=== PATIENT | male | born 1955 | race Asian ===

== ENCOUNTER 2016-08-05 09:15 | Outpatient (CLI) | payer OTHER | END 2016-08-05 09:30 | disposition home or self-care (01) | DX: R07.9 Chest pain, unspecified (principal) ==

== ENCOUNTER 2016-08-27 08:45 | Outpatient (CLI) | payer OTHER | END 2016-08-27 09:00 | disposition home or self-care (01) | DX: I26.99 Other pulmonary embolism without acute cor pulmonale (principal); R07.9 Chest pain, unspecified ==

== ENCOUNTER 2016-08-27 17:05 | Outpatient (CLI) | payer OTHER | END 2016-08-27 17:06 | disposition home or self-care (01) | DX: I26.99 Other pulmonary embolism without acute cor pulmonale (principal) ==

== ENCOUNTER 2016-08-29 07:50 | Outpatient (CLI) | payer OTHER | END 2016-08-29 07:51 | disposition home or self-care (01) | DX: I26.99 Other pulmonary embolism without acute cor pulmonale (principal) ==

== ENCOUNTER 2016-09-03 20:44 | Outpatient (CLI) | payer OTHER | END 2016-09-03 20:45 | disposition home or self-care (01) | DX: I26.99 Other pulmonary embolism without acute cor pulmonale (principal) ==

== ENCOUNTER 2016-09-10 08:00 | Outpatient (CLI) | payer OTHER | END 2016-09-10 08:01 | disposition home or self-care (01) | DX: I26.99 Other pulmonary embolism without acute cor pulmonale (principal) ==

== ENCOUNTER 2016-09-17 08:11 | Outpatient (CLI) | payer OTHER | END 2016-09-17 08:12 | disposition home or self-care (01) | DX: I26.99 Other pulmonary embolism without acute cor pulmonale (principal) ==

== ENCOUNTER 2016-09-17 08:45 | Outpatient (CLI) | payer OTHER | END 2016-09-17 09:00 | disposition home or self-care (01) | DX: R07.9 Chest pain, unspecified (principal); I26.99 Other pulmonary embolism without acute cor pulmonale ==

== ENCOUNTER 2016-09-24 08:17 | Outpatient (CLI) | payer OTHER | END 2016-09-24 08:18 | DX: I26.99 Other pulmonary embolism without acute cor pulmonale (principal) ==

== ENCOUNTER 2016-09-25 04:40 | Outpatient (CLI) | payer OTHER | END 2016-09-25 04:41 | disposition critical access hospital (66) | DX: R07.9 Chest pain, unspecified (principal) | CPT/HCPCS: A0425; A0427 ==

== ENCOUNTER 2016-09-25 04:59 | Emergency (ER) | payer OTHER | END 2016-09-25 07:26 | disposition home or self-care (01) | DX: R07.9 Chest pain, unspecified (principal); I10 Essential (primary) hypertension; Z86.711 Personal history of pulmonary embolism ==

== ENCOUNTER 2016-09-26 08:00 | Outpatient (CLI) | payer OTHER | END 2016-09-26 08:01 | disposition home or self-care (01) | DX: I26.99 Other pulmonary embolism without acute cor pulmonale (principal) ==

== ENCOUNTER 2016-11-19 08:00 | Outpatient (CLI) | payer OTHER | END 2016-11-19 08:01 | disposition home or self-care (01) | LOC: LAB.N 08:00 | PROVIDERS: ATTEND Nurse Practitioner Gerontology | DX: I26.99 Other pulmonary embolism without acute cor pulmonale (principal) | CPT/HCPCS: 85610 ==

== ENCOUNTER 2016-11-19 08:53 | Outpatient (CLI) | payer MEDICAID, OTHER | END 2016-11-19 23:59 | DX: Z53.9 Procedure and treatment not carried out, unspecified reason (principal) ==

== ENCOUNTER 2016-12-13 08:00 | Outpatient (CLI) | payer SELFPAY | END 2016-12-13 08:01 | disposition home or self-care (01) | LOC: LAB.N 08:00 | PROVIDERS: ATTEND Nurse Practitioner Gerontology | DX: I26.99 Other pulmonary embolism without acute cor pulmonale (principal) | CPT/HCPCS: 85610 ==

== ENCOUNTER 2016-12-20 13:00 | Outpatient (CLI) | payer MEDICAID | END 2016-12-20 23:59 | LOC: LAB.N 13:00 | PROVIDERS: ATTEND Nurse Practitioner Gerontology | DX: I26.99 Other pulmonary embolism without acute cor pulmonale (principal) | CPT/HCPCS: 85610 ==

== ENCOUNTER 2016-12-27 13:35 | Outpatient (CLI) | payer MEDICAID | END 2016-12-27 13:36 | disposition home or self-care (01) | LOC: LAB.N 13:35 | PROVIDERS: ATTEND Nurse Practitioner Gerontology | DX: I26.99 Other pulmonary embolism without acute cor pulmonale (principal) | CPT/HCPCS: 85610 ==

== ENCOUNTER 2016-12-30 08:00 | Outpatient (CLI) | payer MEDICAID | END 2016-12-30 08:01 | disposition home or self-care (01) | DX: I26.99 Other pulmonary embolism without acute cor pulmonale (principal) ==

== ENCOUNTER 2017-01-10 13:23 | Outpatient (CLI) | payer MEDICAID | END 2017-01-10 13:24 | disposition home or self-care (01) | LOC: LAB.N 13:23 | PROVIDERS: ATTEND Nurse Practitioner Gerontology | DX: I26.99 Other pulmonary embolism without acute cor pulmonale (principal) | CPT/HCPCS: 85610 ==

== ENCOUNTER 2017-01-13 13:54 | Outpatient (CLI) | payer MEDICAID | END 2017-01-13 23:59 | disposition home or self-care (01) | LOC: LAB.N 13:54 | PROVIDERS: ATTEND Nurse Practitioner Gerontology | DX: I26.99 Other pulmonary embolism without acute cor pulmonale (principal) | CPT/HCPCS: 85610 ==

== ENCOUNTER 2017-01-20 09:43 | Outpatient (CLI) | payer MEDICAID | END 2017-01-20 09:44 | disposition home or self-care (01) | LOC: LAB.N 09:43 | PROVIDERS: ATTEND Nurse Practitioner Gerontology | DX: I26.99 Other pulmonary embolism without acute cor pulmonale (principal) | CPT/HCPCS: 85610 ==

== ENCOUNTER 2017-01-28 10:29 | Outpatient (CLI) | payer MEDICAID | END 2017-01-28 10:30 | disposition home or self-care (01) | LOC: LAB.N 10:29 | PROVIDERS: ATTEND Internal Medicine Cardiovascular Disease | DX: I26.99 Other pulmonary embolism without acute cor pulmonale (principal) | CPT/HCPCS: 36415; 80048; 80061; 82088; 83835; 84244; 84443; 85610 ==

== ENCOUNTER 2017-02-06 09:32 | Outpatient (CLI) | payer MEDICAID | END 2017-02-06 09:33 | disposition home or self-care (01) | LOC: LAB.N 09:32 | PROVIDERS: ATTEND Nurse Practitioner Gerontology | DX: I26.99 Other pulmonary embolism without acute cor pulmonale (principal) | CPT/HCPCS: 85610 ==

== ENCOUNTER 2017-02-10 08:03 | Outpatient (CLI) | payer MEDICAID | END 2017-02-10 08:04 | disposition home or self-care (01) | LOC: LAB.N 08:03 | PROVIDERS: ATTEND Nurse Practitioner Gerontology | DX: I26.99 Other pulmonary embolism without acute cor pulmonale (principal) | CPT/HCPCS: 85610 ==

== ENCOUNTER 2017-02-17 14:44 | Outpatient (CLI) | payer MEDICAID | END 2017-02-17 14:45 | disposition home or self-care (01) | LOC: LAB.N 14:44 | PROVIDERS: ATTEND Nurse Practitioner Gerontology | DX: I26.99 Other pulmonary embolism without acute cor pulmonale (principal) | CPT/HCPCS: 85610 ==

== ENCOUNTER 2017-03-26 08:44 | Outpatient (CLI) | payer MEDICAID | END 2017-03-26 08:45 | disposition home or self-care (01) | LOC: LAB.N 08:44 | PROVIDERS: ATTEND Nurse Practitioner Gerontology | DX: I26.99 Other pulmonary embolism without acute cor pulmonale (principal) | CPT/HCPCS: 85610 ==

== ENCOUNTER 2017-03-31 08:00 | Outpatient (CLI) | payer MEDICAID | END 2017-03-31 08:01 | disposition home or self-care (01) | LOC: LAB.N 08:00 | PROVIDERS: ATTEND Nurse Practitioner Gerontology | DX: I26.99 Other pulmonary embolism without acute cor pulmonale (principal) | CPT/HCPCS: 85610 ==

== ENCOUNTER 2017-04-07 08:00 | Outpatient (CLI) | payer MEDICAID | END 2017-04-07 08:01 | LOC: LAB.N 08:00 | PROVIDERS: ATTEND Nurse Practitioner Gerontology | DX: I26.99 Other pulmonary embolism without acute cor pulmonale (principal) | CPT/HCPCS: 85610 ==

== ENCOUNTER 2017-05-05 13:05 | Outpatient (CLI) | payer MEDICAID | END 2017-05-05 13:06 | disposition home or self-care (01) | LOC: LAB.N 13:05 | PROVIDERS: ATTEND Nurse Practitioner Gerontology | DX: I26.99 Other pulmonary embolism without acute cor pulmonale (principal) | CPT/HCPCS: 85610 ==

== ENCOUNTER 2017-05-12 13:06 | Outpatient (CLI) | payer MEDICAID | END 2017-05-12 13:07 | disposition home or self-care (01) | LOC: LAB.N 13:06 | PROVIDERS: ATTEND Nurse Practitioner Gerontology | DX: I26.99 Other pulmonary embolism without acute cor pulmonale (principal) | CPT/HCPCS: 85610 ==

== ENCOUNTER 2017-05-16 09:28 | Outpatient (CLI) | payer MEDICAID | END 2017-05-16 09:29 | disposition home or self-care (01) | LOC: LAB.N 09:28 | PROVIDERS: ATTEND Nurse Practitioner Gerontology | DX: I26.99 Other pulmonary embolism without acute cor pulmonale (principal) | CPT/HCPCS: 85610 ==

== ENCOUNTER 2017-05-22 09:10 | Outpatient (CLI) | payer MEDICAID | END 2017-05-22 09:11 | disposition home or self-care (01) | LOC: LAB.N 09:10 | PROVIDERS: ATTEND Nurse Practitioner Gerontology | DX: I26.99 Other pulmonary embolism without acute cor pulmonale (principal) | CPT/HCPCS: 85610 ==

== ENCOUNTER 2017-06-20 08:54 | Outpatient (CLI) | payer MEDICAID | END 2017-06-20 08:55 | disposition home or self-care (01) | LOC: LAB.N 08:54 | PROVIDERS: ATTEND Nurse Practitioner Gerontology | DX: I26.99 Other pulmonary embolism without acute cor pulmonale (principal) | CPT/HCPCS: 85610 ==

== ENCOUNTER 2017-07-17 08:00 | Outpatient (CLI) | payer MEDICAID | END 2017-07-17 08:01 | disposition home or self-care (01) | LOC: LAB.N 08:00 | PROVIDERS: ATTEND Nurse Practitioner Gerontology | DX: I26.99 Other pulmonary embolism without acute cor pulmonale (principal) | CPT/HCPCS: 85610 ==

== ENCOUNTER 2017-08-15 08:00 | Outpatient (CLI) | payer MEDICAID | END 2017-08-15 08:01 | disposition home or self-care (01) | LOC: LAB.N 08:00 | PROVIDERS: ATTEND Nurse Practitioner Gerontology | DX: I26.99 Other pulmonary embolism without acute cor pulmonale (principal) | CPT/HCPCS: 85610 ==

== ENCOUNTER 2017-08-22 08:46 | Outpatient (CLI) | payer MEDICAID | END 2017-08-22 08:47 | disposition home or self-care (01) | LOC: LAB.N 08:46 | PROVIDERS: ATTEND Nurse Practitioner Gerontology | DX: I26.99 Other pulmonary embolism without acute cor pulmonale (principal) | CPT/HCPCS: 85610 ==

== ENCOUNTER 2017-08-29 08:00 | Outpatient (CLI) | payer MEDICAID | END 2017-08-29 08:01 | disposition home or self-care (01) | LOC: LAB.N 08:00 | PROVIDERS: ATTEND Nurse Practitioner Gerontology | DX: I26.99 Other pulmonary embolism without acute cor pulmonale (principal) | CPT/HCPCS: 85610 ==

== ENCOUNTER 2017-09-18 08:00 | Outpatient (CLI) | payer MEDICAID | END 2017-09-18 08:01 | disposition home or self-care (01) | LOC: LAB.N 08:00 | PROVIDERS: ATTEND Nurse Practitioner Gerontology | DX: I26.99 Other pulmonary embolism without acute cor pulmonale (principal) | CPT/HCPCS: 85610 ==

== ENCOUNTER 2017-11-03 08:00 | Outpatient (CLI) | payer MEDICAID | END 2017-11-03 08:01 | disposition home or self-care (01) | LOC: LAB.N 08:00 | PROVIDERS: ATTEND Nurse Practitioner Gerontology | DX: I26.99 Other pulmonary embolism without acute cor pulmonale (principal) | CPT/HCPCS: 85610 ==

== ENCOUNTER 2017-12-09 08:00 | Outpatient (CLI) | payer MEDICAID | END 2017-12-09 08:01 | disposition home or self-care (01) | LOC: LAB.N 08:00 | PROVIDERS: ATTEND Nurse Practitioner Gerontology | DX: I26.99 Other pulmonary embolism without acute cor pulmonale (principal) | CPT/HCPCS: 85610 ==

== ENCOUNTER 2017-12-23 08:00 | Outpatient (CLI) | payer MEDICAID | END 2017-12-23 08:01 | disposition home or self-care (01) | LOC: LAB.N 08:00 | PROVIDERS: ATTEND Nurse Practitioner Gerontology | DX: I26.99 Other pulmonary embolism without acute cor pulmonale (principal) | CPT/HCPCS: 85610 ==

== ENCOUNTER 2018-01-07 08:00 | Outpatient (CLI) | payer MEDICAID | END 2018-01-07 08:01 | disposition home or self-care (01) | LOC: LAB.N 08:00 | PROVIDERS: ATTEND Nurse Practitioner Gerontology | DX: I26.99 Other pulmonary embolism without acute cor pulmonale (principal) | CPT/HCPCS: 85610 ==

== ENCOUNTER 2018-01-22 08:36 | Outpatient (CLI) | payer MEDICAID | END 2018-01-22 08:37 | disposition home or self-care (01) | LOC: LAB.N 08:36 | PROVIDERS: ATTEND Nurse Practitioner Gerontology | DX: I26.99 Other pulmonary embolism without acute cor pulmonale (principal) | CPT/HCPCS: 85610 ==

== ENCOUNTER 2018-01-26 08:00 | Outpatient (CLI) | payer MEDICAID | END 2018-01-26 08:01 | disposition home or self-care (01) | LOC: LAB.N 08:00 | PROVIDERS: ATTEND Nurse Practitioner Gerontology | DX: I26.99 Other pulmonary embolism without acute cor pulmonale (principal) | CPT/HCPCS: 85610 ==

== ENCOUNTER 2018-02-09 08:40 | Outpatient (CLI) | payer MEDICAID | END 2018-02-09 08:41 | disposition home or self-care (01) | LOC: LAB.N 08:40 | PROVIDERS: ATTEND Nurse Practitioner Gerontology | DX: I26.99 Other pulmonary embolism without acute cor pulmonale (principal) | CPT/HCPCS: 85610 ==

== ENCOUNTER 2018-02-16 08:39 | Outpatient (CLI) | payer MEDICAID | END 2018-02-16 08:40 | disposition home or self-care (01) | LOC: LAB.N 08:39 | PROVIDERS: ATTEND Nurse Practitioner Gerontology | DX: I26.99 Other pulmonary embolism without acute cor pulmonale (principal) | CPT/HCPCS: 85610 ==

== ENCOUNTER 2018-02-17 08:36 | Outpatient (CLI) | payer MEDICAID | END 2018-02-17 08:37 | disposition home or self-care (01) | LOC: LAB.N 08:36 | PROVIDERS: ATTEND Nurse Practitioner Gerontology | DX: I26.99 Other pulmonary embolism without acute cor pulmonale (principal) | CPT/HCPCS: 85610 ==

== ENCOUNTER 2018-03-09 09:24 | Outpatient (CLI) | payer MEDICAID | END 2018-03-09 09:25 | disposition home or self-care (01) | LOC: LAB.N 09:24 | PROVIDERS: ATTEND Nurse Practitioner Gerontology | DX: I26.99 Other pulmonary embolism without acute cor pulmonale (principal) | CPT/HCPCS: 85610 ==

== ENCOUNTER 2018-04-09 09:56 | Outpatient (CLI) | payer MEDICAID | END 2018-04-09 09:57 | disposition home or self-care (01) | LOC: LAB.N 09:56 | PROVIDERS: ATTEND Nurse Practitioner Gerontology | DX: I26.99 Other pulmonary embolism without acute cor pulmonale (principal) | CPT/HCPCS: 85610 ==

== ENCOUNTER 2018-04-20 08:50 | Outpatient (CLI) | payer MEDICAID | END 2018-04-20 08:51 | disposition home or self-care (01) | LOC: LAB.N 08:50 | PROVIDERS: ATTEND Nurse Practitioner Gerontology | DX: I26.99 Other pulmonary embolism without acute cor pulmonale (principal) | CPT/HCPCS: 85610 ==

== ENCOUNTER 2018-04-27 08:00 | Outpatient (CLI) | payer MEDICAID | END 2018-04-27 08:01 | disposition home or self-care (01) | LOC: LAB.N 08:00 | PROVIDERS: ATTEND Nurse Practitioner Gerontology | DX: I26.99 Other pulmonary embolism without acute cor pulmonale (principal) | CPT/HCPCS: 85610 ==

== ENCOUNTER 2018-05-25 07:53 | Outpatient (CLI) | payer MEDICAID | END 2018-05-25 07:54 | disposition home or self-care (01) | LOC: LAB.N 07:53 | PROVIDERS: ATTEND Nurse Practitioner Gerontology | DX: I26.99 Other pulmonary embolism without acute cor pulmonale (principal) | CPT/HCPCS: 85610 ==

== ENCOUNTER 2020-10-14 09:37 | Observation (INO) | payer MEDICARE ==
--- NOTE | 2020-10-14 10:13 | XRAY Report ---
PROCEDURE: Chest 1 View X-Ray INDICATIONS: chest pain TECHNIQUE: One view of the chest was acquired. COMPARISON: 09/25/2016 FINDINGS: Surgical changes and devices: None. Lungs and pleura: No pleural effusions or pneumothorax. Lungs are clear. Mediastinum: Mediastinal contours appear normal. Heart size is normal. Bones and chest wall: No suspicious bony lesions. Age-appropriate degenerative changes are seen. O verlying soft tissues appear unremarkable. IMPRESSION: Portable chest within normal limits for age. Reviewed by: Chetan Whelan MD on 10/14/2020 9:12 AM PATRICIO Approved by: Chetan Whelan MD on 10/14/2020 9:12 AM PATRICIO Station ID: [id number]
[2020-10-14 10:18] LABS: BASOPHILS # (AUTO) 0.1 10^3/uL (0.0-0.1); BASOPHILS % (AUTO) 0.8 %; EOSINOPHILS # (AUTO) 0.2 10^3/uL (0.0-0.7); EOSINOPHILS % (AUTO) 2.1 %; HCT - HEMATOCRIT 40.2 % (42.0-52.0); HGB - HEMOGLOBIN 12.7 g/dL (14.0-18.0); LYMPHOCYTES # (AUTO) 4.3 10^3/uL (1.5-3.5); LYMPHOCYTES % (AUTO) 48.6 %; MEAN CORPUSCULAR HEMOGLOBIN 28.8 pg (27.0-31.0); MEAN CORPUSCULAR HGB CONC 31.6 g/dL (32.0-36.0); MEAN CORPUSCULAR VOLUME 91.2 fL (80.0-94.0); MEAN PLATELET VOLUME 10.1 fL (7.4-11.4); MONOCYTES # (AUTO) 0.6 10^3/uL (0.0-1.0); MONOCYTES % (AUTO) 6.4 %; NEUTROPHILS # (AUTO) 3.7 10^3/uL (1.5-6.6); NEUTROPHILS % (AUTO) 41.6 %; PLT - PLATELET COUNT 237 10^3/uL (130-450); RED BLOOD COUNT 4.41 10^6/uL (4.70-6.10); RED CELL DISTRIBUTION WIDTH 13.5 % (12.0-15.0); WHITE BLOOD COUNT 8.9 x10^3/uL (4.8-10.8)
--- OUTSIDE RECORDS SUMMARY | 2020-10-14 10:26 | EXTERNAL MEDICAL SUMMARY RPT | Continuity of Care Document ---
:1955 Demographics Phone Unavailable Preferred Language Unknown Marital Status Unknown Yarsani Affiliation Unknown Race Unknown Ethnic Group Unknown Author Organization [facility] Address [address] [place] [address] Phone Social History date description facility [phone]
[2020-10-14 10:27] LABS: INR 3.3 (0.8-1.2); PT - PROTHROMBIN TIME 34.5 secs (9.9-12.6)
[2020-10-14 10:34] LABS: PARTIAL THROMBOPLASTIN TIME 41.7 secs (24.9-33.3)
[2020-10-14 10:35] LABS: ALBUMIN 3.9 g/dL (3.2-5.5); ALBUMIN/GLOBULIN RATIO 1.1 (1.0-2.2); BILIRUBIN,TOTAL 0.9 mg/dL (0.2-1.0); CALCIUM 9.6 mg/dL (8.5-10.3); CREATININE 1.1 mg/dL (0.6-1.2); TOTAL PROTEIN 7.4 g/dL (6.7-8.2)
[2020-10-14] MEDS ORDERED: SODIUM CHLORIDE 0.9% 1,000 ML IV STA (12:03)
--- NOTE | 2020-10-14 12:45 | ED Physician Documentation ---
History of Present Illness - Stated complaint Stated Complaint: MALE - Chief complaint Chief Complaint: Abd Pain - History obtained from History obtained from: Patient - Additonal information Additional information: 65-year-old man with past medical history of GI bleed with multiple blood transfusions in past, extremely poor historian, PE on warfarin for the past 6 years, last INR 2.8 yesterday p/w For episodes of hematochezia yesterday and today. Patient also with back pain and cramping abdominal pain as well as intermittent chest pain, although it has not occurred today. Patient denies fe vers, nausea or vomiting. He states that his last colonoscopy was over 10 years ago.Primary doctor is Dr. Pat. Possibly was hospitalized at [facility] or [facility] for GIB 2-4 years ago but he can't remember. Review of Systems Ten Systems: 10 systems reviewed and negative Constitutional: denies: Fever, Chills GI: reports: Abdominal Pain, Bloody / black stool. denies: Nausea, Vomiting : denies: Dysuria PD PAST MEDICAL HISTORY - Past Medical History Past Medical History: Yes Cardiovascular: Hypertension, Pulmonary embolism GI: Diverticulitis - Past Surgical History Past Surgical History: Yes - Present Medications Home Medications: Ambulatory Orders Medication Instructions Recorded Confirmed Losartan Potassium 50 mg PO DAILY 09/25/16 10/14/20 Warfarin Sodium 5 mg PO DAILY 09/25/16 10/14/20 - Allergies Allergies/Adverse Reactions: Allergies Allergy/AdvReac Type Severity Reaction Status Date / Time No Known Drug Allergies Allergy Verified 10/14/20 09:48 - Social History Does the pt smoke?: No Smoking Status: Never smoker Does the pt drink ETOH?: No Does the pt have substance abuse?: No - Immunizations Immunizations are current?: No - POLST Patient has POLST: No PD ED PE NORMAL - Vitals Vital signs reviewed: Yes - General General: Alert and oriented X 3, No acute distress, Well developed/nourished - HEENT HEENT: Atraumatic, PERRL, EOMI - Neck Neck: Supple, no meningeal sign - Cardiac Cardiac: Other (tachycardic rate, regular rhythm) - Respiratory Respiratory: No respiratory distress, Clear bilaterally - Abdomen Abdomen: Non tender, Non distended - Rectal Rectal: Other (+external nonthrombosed hemorrhoids. BRB on ZEYAD. ) - Derm Derm: Normal color - Extremities Extremities: No deformity - Neuro Neuro: Alert and oriented X 3 - Psych Psych: Normal mood, Normal affect Results - Vitals Vitals: Vital Signs - 24 hr 10/14/20 10/14/20 10/14/20 09:43 10:00 12:00 Temperature 36.4 C L Heart Rate 109 H 98 84 Heart Rate [ Sitting] Heart Rate [ Standing] Heart Rate [ Supine] Respiratory 16 16 16 Rate Blood Pressure 143/98 H 129/52 L 150/97 H Blood Pressure [Sitting] Blood Pressure [Standing] Blood Pressure [Supine] O2 Saturation 100 98 97 10/14/20 12:10 Temperature Heart Rate Heart Rate [ 98 Sitting] Heart Rate [ 93 Standing] Heart Rate [ 83 Supine] Respiratory Rate Blood Pressure Blood Pressure 141/101 H [Sitting] Blood Pressure 153/106 H [Standing] Blood Pressure 123/82 H [Supine] O2 Saturation Oxygen O2 Source Room air - Labs Labs: Laboratory Tests 10/14/20 10/14/20 10/14/20 10:08 10:08 10:08 WBC 8.9 RBC 4.41 L Hgb 12.7 L Hct 40.2 L MCV 91.2 MCH 28.8 MCHC 31.6 L RDW 13.5 Plt Count 237 MPV 10.1 Neut # (Auto) 3.7 Lymph # (Auto) 4.3 H [place] # (Auto) 0.6 Eos # (Auto) 0.2 Baso # (Auto) 0.1 Absolute Nucleated RBC 0.00 Nucleated RBC % 0.0 PT 34.5 H INR 3.3 H APTT 41.7 H Sodium 141 Potassium 4.0 Chloride 105 Carbon Dioxide 28 Anion Gap 8.0 BUN 16 Creatinine 1.1 Estimated GFR (MDRD) 67 L Glucose 141 H Calcium 9.6 Total Bilirubin 0.9 AST 22 ALT 24 Alkaline Phosphatase 82 Troponin I High Sens Total Protein 7.4 Albumin 3.9 Globulin 3.5 Albumin/Globulin Ratio 1.1 Lipase 31 10/14/20 10:08 WBC RBC Hgb Hct MCV MCH MCHC RDW Plt Count MPV Neut # (Auto) Lymph # (Auto) [place] # (Auto) Eos # (Auto) Baso # (Auto) Absolute Nucleated RBC Nucleated RBC % PT INR APTT Sodium Potassium Chloride Carbon Dioxide Anion Gap BUN Creatinine Estimated GFR (MDRD) Glucose Calcium Total Bilirubin AST ALT Alkaline Phosphatase Troponin I High Sens 4.0 Total Protein Albumin Globulin Albumin/Globulin Ratio Lipase PD MEDICAL DECISION MAKING - ED course ED course: Patient orthostatic on evaluation after initial symptomatic care. He is an extremely poor historian and I am concerned that he will not follow-up as an outpatient. Because of this I called Dr. Hayes for possible inpatient colonoscopy. I will discuss with Dr. Sy for admission. Departure - Departure Disposition: 66 [facility] DC/Xfer Clinical Impression: Orthostatic hypotension, Rectal bleeding, Hemorrhoids Condition: Stable
[2020-10-14] MEDS ORDERED: SODIUM CHLORIDE FLUSH 0.9% 10 ML SYRINGE IVP PRN (14:00)
[2020-10-14] MEDS ORDERED: CHERRY SYRUP 10 ML UDC PO ONE (14:03)
[2020-10-14] MEDS ORDERED: PHYTONADIONE 10 MG/ML AMP PO ONE (14:03)
--- OUTSIDE RECORDS SUMMARY | 2020-10-14 14:34 | EXTERNAL MEDICAL SUMMARY RPT | Continuity of Care Document ---
:1955 Demographics Phone Unavailable Preferred Language Unknown Marital Status Unknown Jain Affiliation Unknown Race Unknown Ethnic Group Unknown Author Organization [facility] Address [address] [place] [address] Phone Social History date description facility [phone]
[2020-10-14 14:52] LABS: BILIRUBIN,URINE NEGATIVE (NEGATIVE); GLUCOSE, URINE (UA) NEGATIVE (NEGATIVE); KETONES,URINE (UA) NEGATIVE (NEGATIVE); LEUKOCYTE ESTERASE, URINE NEGATIVE (NEGATIVE); NITRITE,URINE NEGATIVE (NEGATIVE); OCCULT BLOOD,URINE NEGATIVE (NEGATIVE); PROTEIN,URINE NEGATIVE (NEGATIVE); UROBILINOGEN,URINE 0.2 (NORMAL) E.U./dL (NORMAL)
[2020-10-14 14:55] LABS: B. PARAPERTUSSIS- RESP PCR PAN NOT DETECTED; B. PERTUSSIS- RESP PCR PANEL NOT DETECTED; C. PNEUMONIAE- RESP PCR PANEL NOT DETECTED; CORONAVIRUS 229E-RESP PCR NOT DETECTED; CORONAVIRUS HKU1-RESP PCR NOT DETECTED; CORONAVIRUS NL63-RESP PCR NOT DETECTED; CORONAVIRUS OC43-RESP PCR NOT DETECTED; HUMAN METAPNEUMOVIRUS NOT DETECTED; INFLUENZA A- RESP PCR PANEL NOT DETECTED; INFLUENZA B - RESP PCR PANEL NOT DETECTED; M. PNEUMONIAE- RESP PCR PANEL NOT DETECTED; PARAINFLUENZA VIRUS 1 NOT DETECTED; PARAINFLUENZA VIRUS 2 NOT DETECTED; PARAINFLUENZA VIRUS 3 NOT DETECTED; PARAINFLUENZA VIRUS 4 NOT DETECTED; RHINOVIRUS/ENTEROVIRUS NOT DETECTED; RSV- RESP PCR PANEL NOT DETECTED; SARS-CoV-2 -RESP PCR PANEL NOT DETECTED
[2020-10-14 14:56] LABS: CLARITY,URINE CLEAR (CLEAR)
[2020-10-14] MEDS: SODIUM CHLORIDE 0.9% 1,000 ML IV SCH (15:00)
--- NOTE | 2020-10-14 15:09 | HISTORY & PHYSICAL EXAMINATION ---
History of Present Illness - Admitted From Admitted From:: ER - History of Present Illness HPI Comment/Other: This is a 65-year-old male of Citizen Of [place] origin who has a history of prior GI bleeding but has been on warfarin for pulmonary embolism several years ago. Yesterday he had abdominal pain and 2 bright red bowel movements and today again two, and therefore presented to the ER. He was found to have an INR of 2.8 yesterday that is 3.3 today, hemoglobin 12.7 today and he was tachycardic at rest with a heart rate of 110 and had an orthostatic drop in blood pressure when tested. He received 1 L of fluid in the ER. He is presented to the Hospitalist service to place in Observation status to work-up abdominal pain and lower GI bleeding. No CT imaging was done while in the ER, because th CT scanner was broken at the time. History - Past Medical History Cardiovascular: reports: Hypertension, Pulmonary embolism GI: reports: Hemorrhoids, Diverticulitis, Other (Had a GI bleed in the past, cannot remember what was the cause) MRSA Hx?: No - Past Surgical History General: reports: Colonoscopy (done over 10 years ago) - Family & Social History Living arrangement: At home Living Situation: With spouse/s.o., With family (15 year old daughter) Social History Notes: He is retired from working at the [employer] - Substance History Use: Uses substance without health or social issues: NONE (No cigarette smoking, no alcohol use, no marijuana use) - POLST Patient has POLST: No Meds/Allgy - Home Medications Home Medications: Ambulatory Orders Medication Instructions Recorded Confirmed Losartan Potassium 50 mg PO DAILY 09/25/16 10/14/20 Warfarin Sodium 5 mg PO DAILY 09/25/16 10/14/20 - Allergies Allergies/Adverse Reactions: Allergies Allergy/AdvReac Type Severity Reaction Status Date / Time No Known Drug Allergies Allergy Verified 10/14/20 09:48 Review of Systems - Gastrointestinal Gastrointestinal: reports: Abdominal pain, Abdominal distention, Diarrhea, Bloody stools - All Other Systems All Other Systems: reports: Reviewed and negative Exam - Vital Signs Vital Signs: Vital Signs x48h Temp Pulse Pulse Pulse Pulse Resp BP 10/14/20 14:21 77 16 110/45 L 10/14/20 12:10 98 93 83 10/14/20 12:00 84 16 150/97 H 10/14/20 10:00 98 16 129/52 L 10/14/20 09:43 36.4 C L 109 H 16 143/98 H BP BP BP Pulse Ox 10/14/20 14:21 100 10/14/20 12:10 141/101 H 153/106 H 123/82 H 10/14/20 12:00 97 10/14/20 10:00 98 10/14/20 09:43 100 - Physical Exam General Appearance: positive: No acute distress, Alert Eyes Bilateral: positive: Normal inspection, EOMI ENT: positive: ENT inspection nml, No signs of dehydration Neck: positive: Nml inspection, No JVD Respiratory: positive: No respiratory distress, Breath sounds nml Cardiovascular: positive: Regular rate & rhythm, No murmur Abdomen: positive: Non-tender, Other (Mildly distended, hyperactive bowel sounds) Skin: positive: Color nml, Warm, Dry Extremities: positive: Non-tender, No pedal edema Neurologic/Psychiatric: positive: Oriented x3, Motor nml Conclusion/Plan - Problem List (1) Lower GI bleeding Conclusion/Plan: The source is unknown and it may have been exacerbated by the excessively elevated INR. Source is unknown, there was no imaging available today, the CT scanner is not working. Will hold the warfarin and give a dose of vitamin K to reverse the high INR. We will request general surgery consult for colonoscopy. Follow H/H q12h. (2) Abdominal pain Conclusion/Plan: We have no CT scanner available today to do complete imaging of the abdomen and pelvis. Will obtain a CT scan when available. Will put the patient on a clear liquid diet. This will also be in preparation for colonoscopy. We will request general surgery consult. (3) Orthostatic hypotension Conclusion/Plan: A significant drop in blood pressure suggesting that he has volume depletion, possibly from a significant GI blood loss. We will order his blood pressure meds but give parameters for holding it. Continue with IV maintenance fluid. We will follow his CBC regarding need for possible blood transfusion. (4) Elevated INR Conclusion/Plan: INR is 3.3 which is excessive and in light of bright red blood per rectum, will give an oral dose of vitamin K x1. Recheck INR later today and follow INR daily. Colonoscopy is planned therefore the provider will likely want an INR under 1.5- 1.8 (5) Anemia Conclusion/Plan: Hemoglobin at presentation is 12.7. We will follow CBC every 12 hours. Will stop the warfarin as we are working up the lower GI bleeding (6) HTN (hypertension) Conclusion/Plan: His home blood pressure medication will be continued with hold parameters in case blood pressure drops, from the GI blood loss anemia. (7) Hx pulmonary embolism Conclusion/Plan: He has been on this for at least 5 to 6 years. The details are not known. Warfarin will be stopped because of the current GI bleeding. (8) Abnormal EKG Conclusion/Plan: His resting EKG shows early R/S transition which is consistent with cor pulmonale. Possibly he has right ventricular strain or enlargement from the prior pulmonary embolism. - Lab Results Fish Bones: 10/14/20 10:08 10/14/20 10:08
[2020-10-14] MEDS: SODIUM CHLORIDE FLUSH 0.9% 10 ML SYRINGE IVP SCH (16:03)
[2020-10-14] MEDS ORDERED: IOPAMIDOL-300 100 ML VIAL ONE (17:03)
[2020-10-14] MEDS ORDERED: IOPAMIDOL-300 100 ML VIAL IVP ONE (18:27)
[2020-10-14] MEDS: SODIUM/POTASSIUM/MAG SULFATES 354 ML PREP KIT PO SCH (18:37)
--- NOTE | 2020-10-14 18:42 | CT Report ---
PROCEDURE: Abdomen/Pelvis W INDICATIONS: abd pain, diarrhea and lower GI bleeding CONTRAST: IV CONTRAST: Isovue 300 ml: 100 PO CONTRAST: *NO PO CONTRAST TECHNIQUE: After the administration of oral and intravenous contrast, 5 mm thick sections acquired from the diap hragms to the symphysis. 5 mm thick coronal and sagittal reformats were acquired. For radiation dos e reduction, the following was used: automated exposure control, adjustment of mA and/or kV accordin g to patient size. COMPARISON: 12/01/2014. FINDINGS: Image quality: Excellent. ABDOMEN: Lung bases: Lung bases are clear. There is a 1.5 cm pulmonary nodule in the extreme right lung base, not previously present. Heart size is normal. Solid organs: Liver and spleen are normal in size and enhancement. Gallbladder contains dependent c alcified stones. No gallbladder wall thickening. Biliary system is non dilated. Pancreas enhances n ormally. No adrenal nodules. Kidneys demonstrate normal size and enhancement, without hydronephrosi s. 4 mm nonobstructing left middle pole renal stone. Peritoneum and bowel: Bowel loops demonstrate normal wall thickness and caliber. There is a normal a ppendix containing contrast. No free fluid or air. Nodes and vessels: No retroperitoneal or mesenteric adenopathy by size criteria. Aorta and inferior vena cava are normal in size. Miscellaneous: No ventral hernias. PELVIS: Genitourinary: Bladder is decompressed. Question mild bladder wall thickening. Miscellaneous: Fat-containing right inguinal hernia. No inguinal adenopathy. Bones: No suspicious bony lesions. No vertebral body compression fractures. IMPRESSION: 1. Interval development of a 1.5 cm pulmonary nodule in the extreme right lung base, suspicious for d evelopment of metastatic disease. 2. Cholelithiasis. 3. Nonobstructing left renal stone. 4. No evidence of acute abdominal process. Comment: Recommend chest CT. Consider PET/CT. Reviewed by: Mike Rosa MD on 10/14/2020 6:40 PM PDT Approved by: Mike Rosa MD on 10/14/2020 6:40 PM PDT Station ID: [id number]
[2020-10-14 19:18] LABS: HCT - HEMATOCRIT 39.7 % (42.0-52.0); HGB - HEMOGLOBIN 12.5 g/dL (14.0-18.0)
[2020-10-14 19:23] LABS: INR 2.1 (0.8-1.2); PT - PROTHROMBIN TIME 22.1 secs (9.9-12.6)
[2020-10-15] MEDS ORDERED: ACETAMINOPHEN 325 MG TABLET PO PRN (00:27)
[2020-10-15] MEDS ORDERED: MORPHINE 2 MG/ML CARPUJECT IVP PRN (00:27)
[2020-10-15] MEDS: SODIUM CHLORIDE FLUSH 0.9% 10 ML SYRINGE IVP SCH ×2 (02:08→08:23)
[2020-10-15] MEDS: SODIUM CHLORIDE 0.9% 1,000 ML IV SCH ×2 (02:09→11:11)
[2020-10-15] MEDS: SODIUM/POTASSIUM/MAG SULFATES 354 ML PREP KIT PO SCH (05:29)
[2020-10-15 05:33] LABS: BASOPHILS # (AUTO) 0.1 10^3/uL (0.0-0.1); BASOPHILS % (AUTO) 0.7 %; EOSINOPHILS # (AUTO) 0.4 10^3/uL (0.0-0.7); EOSINOPHILS % (AUTO) 3.9 %; HCT - HEMATOCRIT 34.6 % (42.0-52.0); HGB - HEMOGLOBIN 10.9 g/dL (14.0-18.0); LYMPHOCYTES # (AUTO) 3.7 10^3/uL (1.5-3.5); LYMPHOCYTES % (AUTO) 40.1 %; MEAN CORPUSCULAR HEMOGLOBIN 28.8 pg (27.0-31.0); MEAN CORPUSCULAR HGB CONC 31.5 g/dL (32.0-36.0); MEAN CORPUSCULAR VOLUME 91.3 fL (80.0-94.0); MEAN PLATELET VOLUME 10.2 fL (7.4-11.4); MONOCYTES # (AUTO) 0.6 10^3/uL (0.0-1.0); MONOCYTES % (AUTO) 6.8 %; NEUTROPHILS # (AUTO) 4.4 10^3/uL (1.5-6.6); NEUTROPHILS % (AUTO) 48.1 %; PLT - PLATELET COUNT 209 10^3/uL (130-450); RED BLOOD COUNT 3.79 10^6/uL (4.70-6.10); RED CELL DISTRIBUTION WIDTH 13.6 % (12.0-15.0); WHITE BLOOD COUNT 9.2 x10^3/uL (4.8-10.8)
[2020-10-15] MEDS ORDERED: PROPOFOL 1000 MG/100 ML 1,000 MG/100 ML BOTTLE IV ONE (07:37)
--- NOTE | 2020-10-15 07:50 | ANESTHESIA ---
Pre-Anesthesia VS, & Labs - Diagnosis GI Bleed - Procedure EGD, Colonoscopy Vital Signs: Temp Pulse Resp BP Pulse Ox 37 C 90 16 153/93 H 98 10/15/20 05:00 10/15/20 05:00 10/15/20 05:00 10/15/20 05:00 10/15/20 05:00 Height: 5 ft 5 in Weight (kg): 74 kg Body Mass Index: 27.1 BMI Classification: Overweight - NPO >8 hours - Lab Results Current Lab Results: Laboratory Tests 10/15/20 05:20: WBC 9.2, RBC 3.79 L, Hgb 10.9 L, Hct 34.6 L, MCV 91.3, MCH 28.8, MCHC 31.5 L, RDW 13.6, Plt Count 209, MPV 10.2, Neut # (Auto) 4.4, Lymph # (Auto) 3.7 H, [place] # (Auto) 0.6, Eos # (Auto) 0.4, Baso # (Auto) 0.1, Absolute Nucleated RBC 0.00, Nucleated RBC % 0.0 10/14/20 19:12: PT 22.1 H, INR 2.1 H 10/14/20 19:12: Hgb 12.5 L, Hct 39.7 L 10/14/20 10:08: Troponin I High Sens 4.0 10/14/20 10:08: PT 34.5 H, INR 3.3 H, APTT 41.7 H 10/14/20 10:08: Sodium 141, Potassium 4.0, Chloride 105, Carbon Dioxide 28, Anion Gap 8.0, BUN 16, Creatinine 1.1, Estimated GFR (MDRD) 67 L, Glucose 141 H, Calcium 9.6, Total Bilirubin 0.9, AST 22, ALT 24, Alkaline Phosphatase 82, Total Protein 7.4, Albumin 3.9, Globulin 3.5, Albumin/Globulin Ratio 1.1, Lipase 31 10/14/20 10:08: WBC 8.9, RBC 4.41 L, Hgb 12.7 L, Hct 40.2 L, MCV 91.2, MCH 28.8, MCHC 31.6 L, RDW 13.5, Plt Count 237, MPV 10.1, Neut # (Auto) 3.7, Lymph # (Auto) 4.3 H, [place] # (Auto) 0.6, Eos # (Auto) 0.2, Baso # (Auto) 0.1, Absolute Nucleated RBC 0.00, Nucleated RBC % 0.0 Lab results reviewed: Yes Fish Bones: 10/15/20 05:20 10/14/20 10:08 Home Medications and Allergies Active Medications Acetaminophen (Acetaminophen 325 Mg Tablet) 650 mg PO Q4HR PRN PRN Reason: Pain or Fever > 38C (100.4F) Last Admin: 10/15/20 00:35 Dose: 650 mg Documented by: Sodium Chloride (Normal Saline 0.9%) 1,000 mls @ 83.33 mls/hr IV .Q12H1M DELTA Last Infusion: 10/15/20 07:00 Dose: 83.33 mls/hr Documented by: Losartan Potassium (Losartan 50 Mg Tablet) 50 mg PO DAILY DELTA Morphine Sulfate (Morphine 2 Mg/Ml Carpuject) 2 mg IVP Q2HR PRN PRN Reason: PAIN Sodium Chloride (Sodium Chloride Flush 0.9% 10 Ml Syringe) 10 ml IVP PRN PRN PRN Reason: NEEDED PER PROVIDER ORDERS Sodium Chloride (Sodium Chloride Flush 0.9% 10 Ml Syringe) 10 ml IVP 0100,0900,1700 DELTA Last Admin: 10/15/20 02:08 Dose: Not Given Documented by: Losartan Potassium 50 mg PO DAILY 09/25/16 Warfarin Sodium 5 mg PO DAILY 09/25/16 Allergies/Adverse Reactions: Allergies Allergy/AdvReac Type Severity Reaction Status Date / Time No Known Drug Allergies Allergy Verified 10/14/20 09:48 Anes History & Medical History - Anesthetic History Anesthesia Complications: reports: No previous complications Family history of Anesthesia Complications: Denies Family history of Malignant Hyperthermia: Denies - Medical History Cardiovascular: reports: Hypertension, Pulmonary embolism Gastrointestinal: reports: Hemorrhoids, Diverticulitis, Other (Had a GI bleed in the past, cannot remember what was the cause) Smoking Status: Never smoker - Surgical History General: reports: Colonoscopy (done over 10 years ago) Exam General: Alert, Oriented x3, Cooperative, No acute distress Dental: WNL Mouth Openin Fingerbreadth Neck Mobility: Normal Mallampati classification: II Respiratory: Lungs clear, Normal breath sounds, No respiratory distress, No accessory muscle use Cardiovascular: Regular rate, Normal S1, Normal S2, No murmurs Plan Anesthesia Type: General, Total IV Consent for Procedure(s) Verified and Reviewed: Yes Code Status: Attempt Resuscitation ASA classification: 2-Mild systemic disease Is this case an emergency?: No
--- NOTE | 2020-10-15 08:12 | HISTORY & PHYSICAL EXAMINATION ---
HPI - Admitted From Admitted from: ED - History Obtained From History obtained from: Patient Exam limitations: Language barrier - History of Present Illness HPI Comment/Other: 65-year-old gentleman who presented to the emergency room with several days of weakness. He has a history of pulmonary embolus and has been on warfarin for several years. With an corporate communications manager, he did report some abdominal pain though not severe. He was noted to be orthostatic in the emergency room and so was admitted for hydration and supportive care as well as observation. He reports a colonoscopy approximately 10 years ago that was normal. He has not ever had an EGD.He has no family history of GI or colon malignancy that he is aware of. PMH/PSH - Past Medical History Cardiovascular: positive: Hypertension, Pulmonary embolism GI: positive: Hemorrhoids, Diverticulitis, Other (Had a GI bleed in the past, cannot remember what was the cause) MRSA Hx?: No - Past Surgical History General: positive: Colonoscopy (done over 10 years ago) Social & Family Hx - Social History Does the pt smoke?: No Smoking Status: Never smoker Does the pt drink ETOH?: No Does the pt have substance abuse?: No - POLST Patient has POLST: No Meds/Allgy - Home Medications Home Medications: Ambulatory Orders Medication Instructions Recorded Confirmed Losartan Potassium 50 mg PO DAILY 09/25/16 10/14/20 Warfarin Sodium 5 mg PO DAILY 09/25/16 10/14/20 - Allergies Allergies/Adverse Reactions: Allergies Allergy/AdvReac Type Severity Reaction Status Date / Time No Known Drug Allergies Allergy Verified 10/14/20 09:48 Review of Systems - Constitutional Constitutional: reports: Fatigue, Weakness - Cardiovascular Cariovascular: reports: Lightheadedness - Gastrointestinal Gastrointestinal: reports: Abdominal pain, Black stools. denies: Nausea - All Other Systems All Other Systems: reports: Reviewed and negative Exam - Vital Signs Reviewed Vital Signs: Yes Vital Signs: Vital Signs x48h Temp Pulse Resp BP Pulse Ox 10/15/20 07:46 36.5 C 86 18 157/93 H 99 10/15/20 05:00 37 C 90 16 153/93 H 98 10/15/20 00:37 37 C 88 17 155/97 H 96 - Physical Exam General Appearance: positive: No acute distress, Alert, Mild distress Eyes Bilateral: positive: Normal inspection, PERRL, EOMI ENT: positive: ENT inspection nml, Pharynx nml, No signs of dehydration Neck: positive: Nml inspection, Thyroid nml, No JVD Respiratory: positive: Chest non-tender, No respiratory distress, Breath sounds nml Cardiovascular: positive: Regular rate & rhythm Peripheral Pulses: positive: 0 Abdomen: positive: Tenderness (Midepigastric). negative: Guarding, Rebound Back: negative: CVA tenderness (R), CVA tenderness (L) Skin: positive: Color nml Neurologic/Psychiatric: positive: Oriented x3 Results - Lab Results Fish Bones: 10/15/20 05:20 10/14/20 10:08 Other Lab Results: Lab Results x24hrs 10/15/20 10/14/20 10/14/20 Range/Units 05:20 19:12 19:12 WBC 9.2 (4.8-10.8) x10^3/uL RBC 3.79 L (4.70-6.10) 10^6/uL Hgb 10.9 L 12.5 L (14.0-18.0) g/dL Hct 34.6 L 39.7 L (42.0-52.0) % MCV 91.3 (80.0-94.0) fL MCH 28.8 (27.0-31.0) pg MCHC 31.5 L (32.0-36.0) g/dL RDW 13.6 (12.0-15.0) % Plt Count 209 (130-450) 10^3/uL MPV 10.2 (7.4-11.4) fL Neut # (Auto) 4.4 (1.5-6.6) 10^3/uL Lymph # (Auto) 3.7 H (1.5-3.5) 10^3/uL [place] # (Auto) 0.6 (0.0-1.0) 10^3/uL Eos # (Auto) 0.4 (0.0-0.7) 10^3/uL Baso # (Auto) 0.1 (0.0-0.1) 10^3/uL Absolute Nucleated RBC 0.00 x10^3/uL Nucleated RBC % 0.0 /100WBC PT 22.1 H (9.9-12.6) secs INR 2.1 H (0.8-1.2) APTT (24.9-33.3) secs Sodium (135-145) mmol/L Potassium (3.5-5.0) mmol/L Chloride (101-111) mmol/L Carbon Dioxide (21-32) mmol/L Anion Gap (6-13) BUN (6-20) mg/dL Creatinine (0.6-1.2) mg/dL Estimated GFR (MDRD) (>89) Glucose (70-100) mg/dL Calcium (8.5-10.3) mg/dL Total Bilirubin (0.2-1.0) mg/dL AST (10-42) IU/L ALT (10-60) IU/L Alkaline Phosphatase (42-121) IU/L Troponin I High Sens (2.3-19.7) ng/L Total Protein (6.7-8.2) g/dL Albumin (3.2-5.5) g/dL Globulin (2.1-4.2) g/dL Albumin/Globulin Ratio (1.0-2.2) Lipase (22-51) U/L Urine Color Urine Clarity (CLEAR) Urine pH (5.0-7.5) PH Ur Specific [place] (1.002-1.030) Urine Protein (NEGATIVE) mg/dL Urine Glucose (UA) (NEGATIVE) mg/dL Urine Ketones (NEGATIVE) mg/dL Urine Occult Blood (NEGATIVE) Urine Nitrite (NEGATIVE) Urine Bilirubin (NEGATIVE) Urine Urobilinogen (NORMAL) E.U./dL Ur Leukocyte Esterase (NEGATIVE) Ur Microscopic Review Urine Culture Comments Nasal Adenovirus (PCR) Nasal B. parapertussis DNA (PCR) Nasal Coronavir 229E PCR Nasal Coronavir HKU1 PCR Nasal Coronavir NL63 PCR Nasal Coronavir OC43 PCR Nasal Enterovir/Rhinovir PCR Nasal Influenza B PCR Nasal Influenza A PCR Nasal Parainfluen 1 PCR Nasal Parainfluen 2 PCR Nasal Parainfluen 3 PCR Nasal Parainfluen 4 PCR Nasal RSV (PCR) Nasal B.pertussis DNA PCR Nasal C.pneumoniae (PCR) Jaya Human Metapneumo PCR Nasal M.pneumoniae (PCR) Nasal SARS-CoV-2 (PCR) 10/14/20 10/14/20 10/14/20 Range/Units 14:10 13:45 10:08 WBC (4.8-10.8) x10^3/uL RBC (4.70-6.10) 10^6/uL Hgb (14.0-18.0) g/dL Hct (42.0-52.0) % MCV (80.0-94.0) fL MCH (27.0-31.0) pg MCHC (32.0-36.0) g/dL RDW (12.0-15.0) % Plt Count (130-450) 10^3/uL MPV (7.4-11.4) fL Neut # (Auto) (1.5-6.6) 10^3/uL Lymph # (Auto) (1.5-3.5) 10^3/uL [place] # (Auto) (0.0-1.0) 10^3/uL Eos # (Auto) (0.0-0.7) 10^3/uL Baso # (Auto) (0.0-0.1) 10^3/uL Absolute Nucleated RBC x10^3/uL Nucleated RBC % /100WBC PT (9.9-12.6) secs INR (0.8-1.2) APTT (24.9-33.3) secs Sodium (135-145) mmol/L Potassium (3.5-5.0) mmol/L Chloride (101-111) mmol/L Carbon Dioxide (21-32) mmol/L Anion Gap (6-13) BUN (6-20) mg/dL Creatinine (0.6-1.2) mg/dL Estimated GFR (MDRD) (>89) Glucose (70-100) mg/dL Calcium (8.5-10.3) mg/dL Total Bilirubin (0.2-1.0) mg/dL AST (10-42) IU/L ALT (10-60) IU/L Alkaline Phosphatase (42-121) IU/L Troponin I High Sens 4.0 (2.3-19.7) ng/L Total Protein (6.7-8.2) g/dL Albumin (3.2-5.5) g/dL Globulin (2.1-4.2) g/dL Albumin/Globulin Ratio (1.0-2.2) Lipase (22-51) U/L Urine Color YELLOW Urine Clarity CLEAR (CLEAR) Urine pH 6.0 (5.0-7.5) PH Ur Specific [place] 1.025 (1.002-1.030) Urine Protein NEGATIVE (NEGATIVE) mg/dL Urine Glucose (UA) NEGATIVE (NEGATIVE) mg/dL Urine Ketones NEGATIVE (NEGATIVE) mg/dL Urine Occult Blood NEGATIVE (NEGATIVE) Urine Nitrite NEGATIVE (NEGATIVE) Urine Bilirubin NEGATIVE (NEGATIVE) Urine Urobilinogen 0.2 (NORMAL) (NORMAL) E.U./dL Ur Leukocyte Esterase NEGATIVE (NEGATIVE) Ur Microscopic Review NOT INDICATED Urine Culture Comments NOT INDICATED Nasal Adenovirus (PCR) NOT DETECTED Nasal B. parapertussis DNA (PCR) NOT DETECTED Nasal Coronavir 229E PCR NOT DETECTED Nasal Coronavir HKU1 PCR NOT DETECTED Nasal Coronavir NL63 PCR NOT DETECTED Nasal Coronavir OC43 PCR NOT DETECTED Nasal Enterovir/Rhinovir PCR NOT DETECTED Nasal Influenza B PCR NOT DETECTED Nasal Influenza A PCR NOT DETECTED Nasal Parainfluen 1 PCR NOT DETECTED Nasal Parainfluen 2 PCR NOT DETECTED Nasal Parainfluen 3 PCR NOT DETECTED Nasal Parainfluen 4 PCR NOT DETECTED Nasal RSV (PCR) NOT DETECTED Nasal B.pertussis DNA PCR NOT DETECTED Nasal C.pneumoniae (PCR) NOT DETECTED Jaya Human Metapneumo PCR NOT DETECTED Nasal M.pneumoniae (PCR) NOT DETECTED Nasal SARS-CoV-2 (PCR) NOT DETECTED 10/14/20 10/14/20 10/14/20 Range/Units 10:08 10:08 10:08 WBC 8.9 (4.8-10.8) x10^3/uL RBC 4.41 L (4.70-6.10) 10^6/uL Hgb 12.7 L (14.0-18.0) g/dL Hct 40.2 L (42.0-52.0) % MCV 91.2 (80.0-94.0) fL MCH 28.8 (27.0-31.0) pg MCHC 31.6 L (32.0-36.0) g/dL RDW 13.5 (12.0-15.0) % Plt Count 237 (130-450) 10^3/uL MPV 10.1 (7.4-11.4) fL Neut # (Auto) 3.7 (1.5-6.6) 10^3/uL Lymph # (Auto) 4.3 H (1.5-3.5) 10^3/uL [place] # (Auto) 0.6 (0.0-1.0) 10^3/uL Eos # (Auto) 0.2 (0.0-0.7) 10^3/uL Baso # (Auto) 0.1 (0.0-0.1) 10^3/uL Absolute Nucleated RBC 0.00 x10^3/uL Nucleated RBC % 0.0 /100WBC PT 34.5 H (9.9-12.6) secs INR 3.3 H (0.8-1.2) APTT 41.7 H (24.9-33.3) secs Sodium 141 (135-145) mmol/L Potassium 4.0 (3.5-5.0) mmol/L Chloride 105 (101-111) mmol/L Carbon Dioxide 28 (21-32) mmol/L Anion Gap 8.0 (6-13) BUN 16 (6-20) mg/dL Creatinine 1.1 (0.6-1.2) mg/dL Estimated GFR (MDRD) 67 L (>89) Glucose 141 H (70-100) mg/dL Calcium 9.6 (8.5-10.3) mg/dL Total Bilirubin 0.9 (0.2-1.0) mg/dL AST 22 (10-42) IU/L ALT 24 (10-60) IU/L Alkaline Phosphatase 82 (42-121) IU/L Troponin I High Sens (2.3-19.7) ng/L Total Protein 7.4 (6.7-8.2) g/dL Albumin 3.9 (3.2-5.5) g/dL Globulin 3.5 (2.1-4.2) g/dL Albumin/Globulin Ratio 1.1 (1.0-2.2) Lipase 31 (22-51) U/L Urine Color Urine Clarity (CLEAR) Urine pH (5.0-7.5) PH Ur Specific [place] (1.002-1.030) Urine Protein (NEGATIVE) mg/dL Urine Glucose (UA) (NEGATIVE) mg/dL Urine Ketones (NEGATIVE) mg/dL Urine Occult Blood (NEGATIVE) Urine Nitrite (NEGATIVE) Urine Bilirubin (NEGATIVE) Urine Urobilinogen (NORMAL) E.U./dL Ur Leukocyte Esterase (NEGATIVE) Ur Microscopic Review Urine Culture Comments Nasal Adenovirus (PCR) Nasal B. parapertussis DNA (PCR) Nasal Coronavir 229E PCR Nasal Coronavir HKU1 PCR Nasal Coronavir NL63 PCR Nasal Coronavir OC43 PCR Nasal Enterovir/Rhinovir PCR Nasal Influenza B PCR Nasal Influenza A PCR Nasal Parainfluen 1 PCR Nasal Parainfluen 2 PCR Nasal Parainfluen 3 PCR Nasal Parainfluen 4 PCR Nasal RSV (PCR) Nasal B.pertussis DNA PCR Nasal C.pneumoniae (PCR) Jaya Human Metapneumo PCR Nasal M.pneumoniae (PCR) Nasal SARS-CoV-2 (PCR) Impression/Plan - Problem List Problem List: GI hemorrhage in the setting of chronic anticoagulation for history of PE.I agree with recommendation for upper and lower endoscopy. We discussed the risks and benefits of the procedure and the patient is expressed both verbal and written consent
[2020-10-15 08:19] LABS: INR 1.5 (0.8-1.2); PT - PROTHROMBIN TIME 16.3 secs (9.9-12.6)
[2020-10-15] MEDS ORDERED: LOSARTAN 50 MG TABLET PO SCH (09:00)
[2020-10-15] MEDS ORDERED: PANTOPRAZOLE 40 MG VIAL IV STA (09:08)
--- NOTE | 2020-10-15 09:10 | ANESTHESIA POST OP EVALUATION ---
Anesthesia Post Eval - Post Anesthesia Eval Vitals: Last Vital Signs Temp 36.5 C 10/15/20 07:46 Pulse 86 10/15/20 07:46 Resp 18 10/15/20 07:46 BP 157/93 H 10/15/20 07:46 Pulse Ox 99 10/15/20 07:46 CV Function Including HR & BP: Stable Pain Control: Satisfactory Nausea & Vomiting: Negative Mental Status: Baseline Respiratory Status: Airway Patent Hydration Status: Satisfactory Anesthesia Complications: None
--- NOTE | 2020-10-15 09:13 | Discharge Plan ---
Discharge Plan Problem Reviewed?: Yes Disposition: Home, Self Care Condition: Stable Prescriptions: Sucralfate [Carafate] 1 gm PO 0700,1100,1600,2200 #28 units Pantoprazole [Protonix] 40 mg PO BID #60 tablet Diet: Soft Activity Restrictions: Activity as Tolerated Shower Restrictions: No Driving Restrictions: No Instruction Topics: Peptic Ulcer, Diverticulosis Diverticulitis Health Concerns: You were here in Observation status to monitor your anemia, since you had bleeding from the intestines. You underwent upper endoscopy and lower endoscopy. The findings were that you have bleeding ulcers in the stomach and bleeding diverticuli in your colon. Please stop taking the Coumadin for 2 weeks minimum, resume it when your primary care doctor okays resuming it. You are being prescribed new medicines to help heal the ulcers: Protonix pills and Sucralfate liquid. The new prescriptions were electronically sent to your [facility] pharmacy in [place]. Resume all your other pre-hospital medications. Avoid spicy foods and avoid aspirin and aspirin-containing products (like Motrin and Advil), for a month, since they can cause stomach ulcers. You should see your primary Care Provider in the next 1-2 weeks for a hospital follow-up visit and to check your anemia. Plan of Treatment: As above. Care Goals: Improvement in symptoms and stabilization are the goals. Assessment: Patient understands and is agreeable with the plan. Additional Instructions or Follow Up instructions: If you have new or worsening symptoms, call your PCP for advice or come to the ER. No Smoking: If you smoke, Please STOP! Call for help. Follow-up with: Sreekanth Pat DO [Primary Care Provider] -
--- NOTE | 2020-10-15 09:17 | DISCHARGE SUMMARY ---
Discharge Summary Admit Date: 10/14/20 Discharge Date: 10/15/20 Discharging Provider: Dr Kim Pretty Primary Care Provider: Dr Sreekanth Pat Condition at Discharge: Stable Discharge Disposition: 01 Home, Self Care - HPI History of Present Illness: This is a 65-year-old male of [place] origin who has a history of prior GI bleeding but has been on Warfarin for pulmonary embolism several years ago. Yesterday he had abdominal pain with diarrhea and 2 bright red bowel movements and today again two, and therefore presented to the ER. He was found to have an INR of 2.8 yesterday that is 3.3 today, hemoglobin 12.7 today and he was tachycardic at rest with a heart rate of 110 and had an orthostatic drop in blood pressure when tested. He received 1 L of fluid in the ER. No CT imaging was done while in the ER, because the CT scanner was broken at the time. He is presented to the Hospitalist service to place in Observation status to work-up abdominal pain and lower GI bleeding. - HOSPITAL COURSE Hospital Course: (1) Bleeding gastric ulcers He was put on a clear liquid diet and the next day was NPO and underwent EGD and colonoscopy. Dr. Ester Barkley did the scopes and found several areas of small huy zoraida ulcers that were bleeding. Protonix and Sucralfate were ordered for discharge. He was told to remain off of Coumadin for approximately 2 weeks and to see his PCP in 1-2 weeks to be okayed to resume Warfarin. He was told to remain off of aspirin and aspirin-like products for at least 1 month. (2) Bleeding of large intestine due to diverticular disease He was started on clear liquid diet and also had a colon Suprep. At the time of EGD he also had colonoscopy. This showed multiple areas of diverticuli that also had bleeding. He was advised to eat a soft bland diet for several weeks. He was told to remain off of Coumadin for approximately 2 weeks and to see his PCP in 1-2 weeks to be okayed to resume Warfarin. He was told to remain off of aspirin and aspirin-like products for a month. (3) Abdominal pain There was no imaging available at admission, the CT scanner was not working. A CT of abdomen/pelvis was available later on the evening of admission and it showed no acute abdominal process, but there was gallstone seen and non- obstructing left renal stone seen. He was put on a clear liquid diet, which was advanced to pureed after EGD & colonoscopy. He tolerated this with no more pain. (4) GI blood loss anemia The GI bleeding may have been exacerbated by the excessively elevated INR. Will stopped the warfarin and give a dose of oral vitamin K 5 mg to reverse the high INR., since there was active bleeding. At discharge the Hgb was 10.9. (5) Orthostatic hypotension A significant drop in blood pressure suggesting that he has volume depletion, possibly from a significant GI blood loss. His blood pressure meds had parameters for holding it. He got IV maintenance fluid. (6) Elevated INR INR was 3.3 which is excessive and in light of bright red blood per rectum, he got an oral dose of vitamin K x1. Warfarin was stopped. He was advised to see PCP about when it can safely be resumed. At discharge INR was 1.5. (7) Lung nodule The admission CXR was unremarkable, but the CT abdomen was able to see the lung bases and reported a 1.5 cm pulmonary nodule at the extreme right lung base, suspicious for malignancy, and not present on previous CT of 11/2014. This needs further work-up. The patient was informed about this finding and need for work- up. (8) HTN (hypertension) His home blood pressure medication were continued but with parameters to not give were ordered, in case blood pressure was low from the GI blood loss anemia. (9) Hx pulmonary embolism He had been on Warfarin for at least 5 to 6 years. The details are not known. Warfarin was stopped because of the current GI bleeding. When and whether Warfarin needs to be restarted will be from PCP. (10) Abnormal EKG His resting EKG showed early R/S transition which suggests possible cor pulmonale. Possibly he has right ventricular strain or enlargement from the prior pulmonary embolism or from longstanding second hand smoke exposure at the [employer] where he works. - ALLERGIES Allergies/Adverse Reactions: Allergies Allergy/AdvReac Type Severity Reaction Status Date / Time No Known Drug Allergies Allergy Verified 10/14/20 09:48 - MEDICATIONS Home Medications: Ambulatory Orders Medication Instructions Recorded Confirmed Losartan Potassium 50 mg PO DAILY 09/25/16 10/14/20 Pantoprazole [Protonix] 40 mg PO BID #60 tablet 10/15/20 Sucralfate [Carafate] 1 gm PO 0700,1100,1600,2200 #28 10/15/20 units - PHYSICAL EXAM AT DISCHARGE General Appearance: positive: No acute distress, Alert Eyes Bilateral: positive: Normal inspection, EOMI ENT: positive: ENT inspection nml, No signs of dehydration Neck: positive: Nml inspection, No JVD Respiratory: positive: No respiratory distress, Breath sounds nml Cardiovascular: positive: Regular rate & rhythm, No murmur Abdomen: positive: Non-tender, Nml bowel sounds, No distention Skin: positive: Warm, Dry, Pallor Extremities: positive: Non-tender, No pedal edema Neurologic/Psychiatric: positive: Oriented x3 (Non-focal.) - LABS Result Diagrams: 10/15/20 05:20 10/14/20 10:08 - DIAGNOSTIC IMAGING Diagnostic Imaging Results: Final report reviewed - FOLLOW UP Follow Up: See PCP in [facility] week. - TIME SPENT Time Spent in Discharge (Minutes): 25
[2020-10-15] MEDS ORDERED: SUCRALFATE 1 GM/10 ML UDC PO SCH (11:00)
--- NOTE | 2020-10-15 11:39 | Discharge Plan ---
Discharge Plan Problem Reviewed?: Yes Disposition: Home, Self Care Condition: Stable Prescriptions: Sucralfate [Carafate] 1 gm PO 0700,1100,1600,2200 #28 units Pantoprazole [Protonix] 40 mg PO BID #60 tablet Activity Restrictions: Activity as Tolerated Shower Restrictions: No Driving Restrictions: No Instruction Topics: Peptic Ulcer, Diverticulosis Diverticulitis Health Concerns: You were here in Observation status to monitor your anemia, since you had bleeding from the intestines. You underwent upper endoscopy and lower endoscopy. The findings were that you have bleeding ulcers in the stomach and bleeding diverticuli in your colon. Please stop taking the Coumadin for 2 weeks minimum, resume it when your primary care doctor okays resuming it. You are being prescribed new medicines to help heal the ulcers: Protonix pills and Sucralfate liquid. The new prescriptions were electronically sent to your [facility] pharmacy in [place]. Resume all your other pre-hospital medications. Avoid spicy foods and avoid aspirin and aspirin-containing products (like Motrin and Advil), for a month, since they can cause stomach ulcers. You should see your primary Care Provider in the next 1-2 weeks for a hospital follow-up visit and to check your anemia. On your CT scan, a nodule was seen in your lung. It is concerning that it could be cancer and it needs evaluation. This was passed on to your PCP to order evaluation. Plan of Treatment: As above. Care Goals: Improvement in symptoms and stabilization are the goals. Assessment: Patient understands and is agreeable with the plan. Additional Instructions or Follow Up instructions: If you have new or worsening symptoms, call your PCP for advice or come to the ER. No Smoking: If you smoke, Please STOP! Call for help. Follow-up with: Sreekanth Pat DO [Primary Care Provider] -
[2020-10-15 12:44] VITALS: BP 151/77
[2020-10-15] MEDS ORDERED: PANTOPRAZOLE 40 MG TABLET PO SCH (21:00)
== END 2020-10-15 13:38 | disposition home or self-care (01) ==
LOC: ED 09:37 → MS2 13:59
PROVIDERS: ADMIT Internal Medicine; ATTEND Internal Medicine
PROC: 0DJD8ZZ Inspection of Lower Intestinal Tract, Via Natural or Artificial Opening Endoscopic (ICD-10-PCS; 2020-10-15)
PROC: 0DB68ZX Excision of Stomach, Via Natural or Artificial Opening Endoscopic, Diagnostic (ICD-10-PCS; principal; 2020-10-15 08:00)
PROC: 0DB48ZX Excision of Esophagogastric Junction, Via Natural or Artificial Opening Endoscopic, Diagnostic (ICD-10-PCS; 2020-10-15 08:00)
DX: K25.4 Chronic or unspecified gastric ulcer with hemorrhage (principal); K57.31 Diverticulosis of large intestine without perforation or abscess with bleeding; D68.32 Hemorrhagic disorder due to extrinsic circulating anticoagulants; K29.80 Duodenitis without bleeding; D50.0 Iron deficiency anemia secondary to blood loss (chronic); T45.515A Adverse effect of anticoagulants, initial encounter; K44.9 Diaphragmatic hernia without obstruction or gangrene; K22.0 Achalasia of cardia; K64.8 Other hemorrhoids; K64.4 Residual hemorrhoidal skin tags; R91.1 Solitary pulmonary nodule; K80.20 Calculus of gallbladder without cholecystitis without obstruction; N20.0 Calculus of kidney; I95.1 Orthostatic hypotension; R94.31 Abnormal electrocardiogram [ECG] [EKG]; I10 Essential (primary) hypertension; E66.3 Overweight; Z68.27 Body mass index [BMI] 27.0-27.9, adult; Z77.29 Contact with and (suspected) exposure to other hazardous substances; Z20.822 Contact with and (suspected) exposure to COVID-19; Z79.01 Long term (current) use of anticoagulants; Z79.899 Other long term (current) drug therapy; Z87.19 Personal history of other diseases of the digestive system; Z86.711 Personal history of pulmonary embolism
CPT/HCPCS: 36415; 43239; 43250; 45378; 71045; 74177; 80053; 81003; 83690; 84484; 85014; 85018; 85025; 85610; 85730; 87631; 93005; 99284; 99285; A9270; G0378; Q9967; 0202U; 81001; 87086

== ENCOUNTER 2021-02-20 09:19 | Outpatient (CLI) | payer MEDICARE ==
--- NOTE | 2021-02-20 10:11 | CT Report ---
PROCEDURE: CHEST WO INDICATIONS: LUNG NODULE TECHNIQUE: Noncontrast images were acquired from the pulmonary apices to the posterior costophrenic angles. Mul tiplanar MIP reformats were then acquired. For radiation dose reduction, the following was used: au tomated exposure control, adjustment of mA and/or kV according to patient size. COMPARISON: CT abdomen and pelvis dated 10/14/[address] abdomen pelvis dated 12/01/2014. FINDINGS: Image quality: Excellent. Lungs and pleura: There is a 0.7 cm round nodule in the right lower lobe in the costophrenic angle m edially. No acute air space opacities. No pleural effusions or pneumothorax. Central and peripheral airways are patent and normal in caliber. Mediastinum: Heart size is normal. No pericardial effusion. No mediastinal adenopathy by size crit eria. Thoracic aorta and central pulmonary arteries are normal in size. The aorta has atherosclerot ic calcifications diffusely. Esophagus is normal in caliber. No hiatal hernia. Bones and chest wall: No suspicious bony lesions. No vertebral body compression fractures. No axil kiel or supraclavicular adenopathy by size criteria. The thyroid is normal in size and there are no incidental findings. Abdomen: Cholelithiasis without evidence of cholecystitis. No acute abnormality in the upper abdomen. A nonobstructing 4 mm left middle pole renal stone is unchanged. IMPRESSION: 1. 0.7 cm nodule in the right lower lobe is significantly smaller compared to 10/14/2020 when it measu red 1.5 cm. The margins appear mildly spiculated compared to the smooth appearance on the prior CT ho wever this could be due to the mass involuting. Please correlate with interval history of any treatme nt. 2. Recommend follow-up CT in 3 months. 3. No other nodules, masses, or adenopathy. Reviewed by: Manoj Fisher on 02/20/2021 10:10 AM PDT Approved by: Manoj Fisher on 02/20/2021 10:10 AM PDT Station ID: [id number]
== END 2021-02-20 09:20 | disposition home or self-care (01) ==
LOC: DI 09:19
PROVIDERS: ATTEND Physician Assistant
DX: R91.1 Solitary pulmonary nodule (principal)

== ENCOUNTER 2021-03-27 09:38 | Outpatient (CLI) | payer MEDICARE ==
[2021-03-27 11:39] LABS: BASOPHILS # (AUTO) 0.1 10^3/uL (0.0-0.1); BASOPHILS % (AUTO) 0.9 %; EOSINOPHILS # (AUTO) 0.2 10^3/uL (0.0-0.7); EOSINOPHILS % (AUTO) 2.5 %; HCT - HEMATOCRIT 45.7 % (42.0-52.0); HGB - HEMOGLOBIN 14.3 g/dL (14.0-18.0); LYMPHOCYTES # (AUTO) 3.1 10^3/uL (1.5-3.5); LYMPHOCYTES % (AUTO) 40.2 %; MEAN CORPUSCULAR HEMOGLOBIN 28.1 pg (27.0-31.0); MEAN CORPUSCULAR HGB CONC 31.3 g/dL (32.0-36.0); MEAN CORPUSCULAR VOLUME 89.8 fL (80.0-94.0); MEAN PLATELET VOLUME 11.1 fL (7.4-11.4); MONOCYTES # (AUTO) 0.5 10^3/uL (0.0-1.0); MONOCYTES % (AUTO) 6.7 %; NEUTROPHILS # (AUTO) 3.8 10^3/uL (1.5-6.6); NEUTROPHILS % (AUTO) 49.3 %; PLT - PLATELET COUNT 236 10^3/uL (130-450); RED BLOOD COUNT 5.09 10^6/uL (4.70-6.10); RED CELL DISTRIBUTION WIDTH 15.2 % (12.0-15.0); WHITE BLOOD COUNT 7.6 x10^3/uL (4.8-10.8)
[2021-03-27 11:48] LABS: BILIRUBIN,URINE NEGATIVE (NEGATIVE); GLUCOSE, URINE (UA) NEGATIVE (NEGATIVE); KETONES,URINE (UA) NEGATIVE (NEGATIVE); LEUKOCYTE ESTERASE, URINE NEGATIVE (NEGATIVE); NITRITE,URINE NEGATIVE (NEGATIVE); OCCULT BLOOD,URINE NEGATIVE (NEGATIVE); PH,URINE 5.5 PH (5.0-7.5); PROTEIN,URINE NEGATIVE (NEGATIVE); UROBILINOGEN,URINE 0.2 (NORMAL) E.U./dL (NORMAL)
[2021-03-27 11:54] LABS: ALBUMIN/GLOBULIN RATIO 1.1 (1.0-2.2); BILIRUBIN,TOTAL 1.1 mg/dL (0.2-1.0); CALCIUM 9.2 mg/dL (8.5-10.3); CREATININE 0.9 mg/dL (0.6-1.2); POTASSIUM 3.6 mmol/L (3.5-5.0); TOTAL PROTEIN 7.6 g/dL (6.7-8.2)
[2021-03-27 12:15] LABS: BACTERIA,URINE None Seen /HPF (None Seen); CLARITY,URINE CLEAR (CLEAR); RBC,URINE 0-5 /HPF (0-5); SQUAMOUS EPITHELIAL CELL,UR RARE Squamous (<= Few); WBC,URINE 0-3 /HPF (0-3)
== END 2021-03-27 23:59 | disposition home or self-care (01) ==
LOC: LAB.N 09:38
PROVIDERS: ATTEND Nurse Practitioner
DX: R10.13 Epigastric pain (principal)
CPT/HCPCS: 36415; 80053; 81001; 82150; 83690; 85025; 87086

== ENCOUNTER 2021-08-03 08:37 | Outpatient (CLI) | payer MEDICARE ==
--- NOTE | 2021-08-03 10:33 | CT Report ---
PROCEDURE: CHEST WO INDICATIONS: LUNG NODULE TECHNIQUE: Noncontrast 1mm axial images were acquired from the pulmonary apices to the posterior costophrenic an gles. Axial 5 mm soft tissue kernel reconstructions were performed as well as 8 mm axial MIP and cor onal and sagittal 5 mm reformations. For radiation dose reduction, the following was used: automate d exposure control, adjustment of mA and/or kV according to patient size. COMPARISON: CT chest without, 02/20/2021. FINDINGS: Image quality: Excellent. Lungs and pleura: There is a 4 mm nodule in the right lung base (series 4 image 250), further decrea sed in size (previously measured 7 mm on 02/20/2021 and 15 mm on 10/14/2020). No acute air space opacit ies. There is lingular scars and atelectasis. No pleural effusions or pneumothorax. Central and per ipheral airways are patent and normal in caliber. Mediastinum: Heart size is normal. No pericardial effusion. No mediastinal adenopathy by size crit eria. Thoracic aorta and central pulmonary arteries are normal in size. Esophagus is normal in yaniv hood. Small hiatal hernia. Bones and chest wall: No suspicious bony lesions. No vertebral body compression fractures. No axil kiel or supraclavicular adenopathy by size criteria. The thyroid is normal in size and there are no incidental findings. Abdomen: Visualized upper abdominal solid organs and bowel loops appear normal in the absence of con trast. IMPRESSION: 1. Progressive decrease in size of right basilar lung nodule. Reviewed by: Brandy Casanova MD on 08/03/2021 10:31 AM [facility] Approved by: Brandy Casanova MD on 08/03/2021 10:31 AM PST Station ID: [id number]
== END 2021-08-03 08:38 | disposition home or self-care (01) ==
LOC: DI 08:37
PROVIDERS: ATTEND Physician Assistant
DX: R91.1 Solitary pulmonary nodule (principal)

== ENCOUNTER 2022-01-11 15:58 | Emergency (ER) | payer MEDICARE ==
--- NOTE | 2022-01-11 18:11 | ED Physician Documentation ---
PD HPI FOCAL NEURO - Stated complaint Stated Complaint: DELONG/DIZZINESS/NECK PX - Chief complaint Chief Complaint: Neuro - History obtained from History obtained from: Patient - Additional information Additional information: 66-year-old gentleman with history of high blood pressure has had 3 weeks of headaches. They are on and off during the day, seem to be worse at work and worse when he bends over or stands up too quickly. He denies nausea, light sensitivity. He is tried some [id number]'s which do help. Pain radiates into the neck a bit. No fevers or chills. I asked him if he was under a lot of stress and he started to tell me about the problems he had with his 16-year-old daughter and he admits to a lot of stress. Review of Systems Constitutional: reports: Reviewed and negative Nose: reports: Reviewed and negative Throat: reports: Reviewed and negative Cardiac: reports: Reviewed and negative PD PAST MEDICAL HISTORY - Past Medical History Cardiovascular: Hypertension, Pulmonary embolism GI: Hemorrhoids, Diverticulitis, Other (Had a GI bleed in the past, cannot remember what was the cause) - Past Surgical History Past Surgical History: Yes General: Colonoscopy (done over 10 years ago) - Present Medications Home Medications: Ambulatory Orders Medication Instructions Recorded Confirmed Losartan Potassium 50 mg PO DAILY 09/25/16 10/14/20 Pantoprazole [Protonix] 40 mg PO BID #60 tablet 10/15/20 Sucralfate [Carafate] 1 gm PO 0700,1100,1600,2200 #28 10/15/20 units tiZANidine [Zanaflex] 4 mg PO Q8H PRN #20 tablet 01/11/22 - Allergies Allergies/Adverse Reactions: Allergies Allergy/AdvReac Type Severity Reaction Status Date / Time No Known Drug Allergies Allergy Verified 01/11/22 16:09 - Social History Does the pt smoke?: No Smoking Status: Never smoker Does the pt drink ETOH?: No Does the pt have substance abuse?: No - Immunizations Immunizations are current?: No - POLST Patient has POLST: No PD ED PE NORMAL - Vitals Vital signs reviewed: Yes - General General: Alert and oriented X 3, No acute distress - HEENT HEENT: PERRL, EOMI - Neck Neck: Supple, no meningeal sign, No bony TTP - Neuro Neuro: Alert and oriented X 3, 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 Radiology: EMP read contemporaneously PD MEDICAL DECISION MAKING - ED course ED course: 66-year-old gentleman presents with intermittent headaches for the last 3 weeks that are occipital and radiating up and down associated with some neck tenderness. He is under a lot of stress and this sounds most consistent with tension headaches. The location is not consistent with a vasculitis such as GCA. CT of the head is unremarkable. Nothing in the history or physical to suggest infectious etiology or subarachnoid hemorrhage. Departure - Departure Disposition: 01 Home, Self Care Clinical Impression: Headache Qualifiers: Headache type: tension-type Headache chronicity pattern: acute headache Intractability: not intractable Qualified Code(s): G44.209 - Tension-type headache, unspecified, not intractable Condition: Good Record reviewed to determine appropriate education?: Yes Instructions: ED Headache Tension Prescriptions: tiZANidine [Zanaflex] 4 mg PO Q8H PRN #20 tablet PRN Reason: Headache Comments: As discussed, given the description of the headaches and the association with stress I do think you are having stress or tension headaches. You can take ibuprofen as needed for this but I am also prescribing a muscle relaxer which might help. Do not drink or drive with it. I sent that prescription to [facility] in [place]. Return for new or worsening symptoms and follow-up with your primary care physician, next available appointment for reevaluation.
--- NOTE | 2022-01-11 18:44 | CT Report ---
PROCEDURE: CT brain without contrast INDICATIONS: headache TECHNIQUE: Noncontrast 5 mm thick angled axial sections acquired from the foramen magnum to the vertex. For rad iation dose reduction, the following was used: automated exposure control, adjustment of mA and/or k V according to patient size. COMPARISON: None. FINDINGS: Image quality: Excellent. CSF spaces: Basal cisterns are patent. No extra-axial fluid collections. Ventricles are normal in size and shape. Brain: No midline shift. No intracranial masses or hemorrhage. Christensen-white matter interface is norm al. Skull and face: Calvarium and visualized facial bones are intact, without suspicious lesions. Sinuses: Visualized sinuses and mastoids are clear. IMPRESSION: Normal CT of the brain Reviewed by: Andrea Singer MD on 01/11/2022 5:42 PM PATRICIO Approved by: Andrea Singer MD on 01/11/2022 5:42 PM PATRICIO Station ID: [id number]
[2022-01-11 19:17] VITALS: BP 137/89
== END 2022-01-11 19:17 | disposition home or self-care (01) ==
LOC: ED 15:58
DX: G44.209 Tension-type headache, unspecified, not intractable (principal); I10 Essential (primary) hypertension
CPT/HCPCS: 99283; 99284

== ENCOUNTER 2023-10-02 08:45 | Outpatient (CLI) | payer MEDICARE ==
--- NOTE | 2023-10-02 11:52 | XRAY Report ---
PROCEDURE: Lumbar Spine 2-3V INDICATIONS: BACK PAIN, LUMBAR TECHNIQUE: 2 views of the lumbar spine were acquired. COMPARISON: None. FINDINGS: Bones: 5 sso-abp-ykzptqc vertebrae are present. Straightening of the normal lumbar lordosis. There a re multilevel degenerative changes of the lumbar spine with facet arthropathy and disc height loss wi th degenerative endplate changes and marginal spurring. No vertebral body compression fractures. No suspicious bony lesions. Soft tissues: Overlying bowel gas pattern is normal. No suspicious soft tissue calcifications. IMPRESSION: Multilevel degenerative changes of the lumbar spine. Reviewed by: Adiel Tyson MD on 10/02/2023 11:51 AM PDT Approved by: Adiel Tyson MD on 10/02/2023 11:51 AM PDT Station ID: [id number]
--- NOTE | 2023-10-02 11:53 | XRAY Report ---
PROCEDURE: Cervical Spine 2-3V INDICATIONS: CERVICALGIA TECHNIQUE: 2 view(s) of the cervical spine were acquired. COMPARISON: None. FINDINGS: Bones: No fractures or dislocations to the C6-C7 level. Multilevel degenerative changes of the cervi fred spine with facet and uncovertebral arthropathy, disc height loss, endplate degenerative changes a nd spurring. This is most pronounced at C5-C6. Straightening of normal cervical lordosis. The latera l masses of C1 appear intact on the odontoid view. No suspicious bony lesions. Soft tissues: No prevertebral soft tissue swelling. IMPRESSION: Multilevel degenerative changes cervical spine, severe at C5-C6. Reviewed by: Adiel Tyson MD on 10/02/2023 11:51 AM PDT Approved by: Adiel Tyson MD on 10/02/2023 11:51 AM PDT Station ID: [id number]
== END 2023-10-02 09:00 | disposition home or self-care (01) ==
LOC: DI.N 08:45
PROVIDERS: ATTEND Physician Assistant Medical
DX: M47.812 Spondylosis without myelopathy or radiculopathy, cervical region (principal); M47.816 Spondylosis without myelopathy or radiculopathy, lumbar region

== ENCOUNTER 2024-07-14 17:07 | Inpatient (IN) ==
--- NOTE | 2024-07-14 17:19 | ED Physician Documentation ---
History of Present Illness Stated complaint Stated Complaint: DIZZY Chief complaint Chief Complaint: Cardiac History obtained from History obtained from: Patient and EMS Additonal information Additional information: 69-year-old gentleman who has some sort of heart problem, he is not sure what. He says he has seen a wire chief at [facility] and takes Coumadin but is not sure why. He does not recognize the term atrial fibrillation or irregular heartbeat. 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 Ambulance was summoned and they noted him to be in A-fib with RVR, he is feeling much better with his heart rate lower after diltiazem given prehospital. He denies chest pain or trouble breathing. There was no syncope. No pedal edema or calf pain. His INR yesterday was 5.9. Meds/Allgy Home Medications Ambulatory Orders Medication Instructions Recorded Confirmed losartan 50 mg tablet 50 mg PO DAILY #90 tabs 05/04/24 07/14/24 meloxicam 7.5 mg tablet 7.5 mg PO QDAY PRN Pain #30 tabs 05/04/24 07/14/24 hydrocortisone acetate 25 mg 25 mg ND BID #12 ea 07/13/24 07/14/24 rectal suppository (Anucort-HC) Allergies Allergies Allergy/AdvReac Type Severity Reaction Status Date / Time No Known Drug Allergies Allergy Verified 07/14/24 17:17 [facility] Surgical History Surgical History (Updated 05/04/24 @ 10:27 by Parrish Jackson DNP, ELECTRICAL TECHNICIAN INSTRUCTOR, LOG PROCESSOR OPERATOR) 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 and With family (15 year old daughter) Support Person: Yes Relationship: Physical Activity: Walking Level: Independent Do you feel safe in your home environment?: Yes Suffered physical, verbal, emotional, or financial abuse?: No History of Abuse: No ETOH Use: None Substance Use: denies use Are you sexually active?: No Occupation: [employer] Are you following a diet prescribed by a doctor: No Are you following a special diet: No POLST Patient has POLST: No Exam Constitutional normal general appearance and no apparent distress Respiratory breath sounds equal bilaterally, normal respiratory effort and clear to auscultation bilaterally Cardiovascular Irregularly irregular without murmur Neurology GCS 15 Results Vitals Vitals: Vital Signs - 24 hr 07/14/24 17:12 07/14/24 17:32 07/14/24 19:21 Temperature 36.0 C L Temperature Source Temporal Artery Scan Pulse Rate 112 H 92 140 H Respiratory Rate 20 20 Blood Pressure 101/68 101/68 O2 Saturation 100 98 16 L O2 Source Room air Room air If not protocol: Oxygen Flow, liters/minute 92 Pain Intensity 3 0 07/14/24 19:24 07/14/24 19:25 07/14/24 19:28 Temperature Temperature Source Pulse Rate 140 H 137 H 100 Respiratory Rate 20 Blood Pressure 54/44 L 82/62 L O2 Saturation 100 O2 Source If not protocol: Oxygen Flow, liters/minute Pain Intensity 07/14/24 19:29 07/14/24 19:34 07/14/24 19:42 Temperature Temperature Source Pulse Rate 120 H 87 100 Respiratory Rate 20 20 Blood Pressure 84/51 L 88/55 L O2 Saturation 100 100 O2 Source If not protocol: Oxygen Flow, liters/minute 15 Pain Intensity 07/14/24 19:49 07/14/24 19:54 07/14/24 20:09 Temperature Temperature Source Pulse Rate 990 H 129 H 99 Respiratory Rate 20 24 16 Blood Pressure 90/69 96/71 O2 Saturation 100 100 O2 Source Room air If not protocol: Oxygen Flow, liters/minute 15 Pain Intensity 0 0 Oxygen O2 Source Room air EKG (time done) 172: EKG releavant findings:: EKG personally interpreted by author of this note. Relevant findings are: Atrial fibrillation with a rate of 107, low voltage in the precordial leads, some nonspecific findings without anything suggestive of acute ischemia. Normal QTc. 193: EKG releavant findings:: EKG personally interpreted by author of this note. Relevant findings are: Post cardioversion attempts: Atrial fibrillation with a rate of 98. Borderline LAD, low voltage, and other nonspecific changes. Labs Labs: Laboratory Tests 07/14/24 17:23 WBC 11.6 H RBC 3.73 L Hgb 10.8 L Hct 34.4 L MCV 92.2 MCH 29.0 MCHC 31.4 L RDW 13.2 Plt Count 209 MPV 10.2 Neut # (Auto) 9.5 H Lymph # (Auto) 1.7 [place] # (Auto) 0.3 Eos # (Auto) 0.0 Baso # (Auto) 0.1 Absolute Nucleated RBC 0.00 Nucleated RBC % 0.0 PT 57.5 H INR 5.9 H* Sodium 137 Potassium 4.4 Chloride 106 Carbon Dioxide 25 Anion Gap 6.0 BUN 26 H Creatinine 1.2 Estimated GFR (MDRD) 60 L Glucose 203 H Calcium 8.9 Magnesium 2.0 Total Bilirubin 1.1 H AST 16 ALT 17 Alkaline Phosphatase 57 Troponin I High Sens 3.5 B-Natriuretic Peptide 43 Total Protein 6.2 L Albumin 3.7 Globulin 2.5 Albumin/Globulin Ratio 1.5 TSH 1.49 Procedures Procedural sedation Sedation prep: Informed consent, Time out completed, PE performed, ASA 2 - mild disease, IV O2 monitor, ET CO2 monitor and RT present Sedation Medications: propofol (50 mg IVP) Mallampati classification: II Patient status during sedation: Drowsy Sedation recovery: Recovered uneventfully Time in sedation (Minutes): 15 Cardioversion - Major Attempt 1: Time of attempt: 19:20 Indication: Tachyarrhythmia Risks, benefits, alternatives explained to: Pt Prep: shelter monitor CS via: Pads and AP approach Sync: Biphasic Post cardioversion rhythm: A-fib (After sedation he was initially cardioverted at 100, then 150 then 200 J. After the 200 J shock he briefly was in a sinus rhythm but then converted. At that point he kind of decompensated with respiratory arrest despite the fairly low dose of propofol that was given. He dropped his blood pressure) Performed by: ED MD Medical Decision Making ED course ED course: 69-year-old gentleman presents weak and dizzy with A-fib with RVR. The RVR is improved after diltiazem given prehospital. I presume the A-fib is chronic although he is not aware of the diagnosis since he is on Coumadin. Do not see anything else in the chart to suggest why he would be on Coumadin. He was supratherapeutic yesterday with an INR 5.9. Will recheck as well as routine labs and TSH with consideration for electrical cardioversion. He was documented to be in a regular rate and rhythm by Dr. Sharp yesterday. During attempted cardioversion he did become unstable and his blood pressure dropped precipitously. He did not convert from A-fib. He was initially cardioverted at 100 and then 150 J, without success. After the 200 J shock he converted briefly, maybe 10 seconds, but then went right back into A-fib given that he was becoming hypotensive I did load him with 150 mg of amiodarone and we attempted cardioversion again, again without success. He did recover well and had no specific complaints. After recovery he was rate controlled potentially from the amiodarone?. We did note also that he has bleeding hemorrhoids with INR of 5.9 and his hemoglobin dropped from 14 down to 10 today. Given his period of instability decision was made to place in observation in the ICU and I spoke with JOCELIN Cates for that at 8:20 PM. Given the supratherapeutic INR and 4 g drop in hemoglobin I will give him FFP as well. The patient and family are counseled as to the diagnosis and need for admission. This document was made in part using voice recognition software, while efforts are made to proofread this document, sound alike an grammatical errors may occur.. Critical Care Critical Care Provided: Yes Time(min): 40 Time Includes: Direct patient care, Review records, Reassess patient, Document care, Coordinate care and Medical consult Data interpretation: Labs and Pulse ox Procedures included in critical care time: Peripheral IV Procedures excluded from critical care time: EKG and See progress note (sedation/cardioversion) Discharge Plan Discharge Patient Disposition: ED Place in Observation Condition: Serious Clinical Impression: Supratherapeutic INR, Atrial fibrillation with rapid ventricular response, ABLA (acute blood loss anemia) Prescriptions: No Action hydrocortisone acetate [Anucort-HC] 25 mg suppository 25 mg ND BID Qty: 12 0RF meloxicam 7.5 mg tablet 7.5 mg PO QDAY PRN (Reason: Pain ) Qty: 30 2RF losartan 50 mg tablet 50 mg PO DAILY Qty: 90 0RF Print Language: Croatian Stand Alone Forms: PCP List
[2024-07-14 17:29] LABS: BASOPHILS # (AUTO) 0.1 10^3/uL (0.0-0.1); BASOPHILS % (AUTO) 0.4 %; HCT - HEMATOCRIT 34.4 % (42.0-52.0); HGB - HEMOGLOBIN 10.8 g/dL (14.0-18.0); LYMPHOCYTES # (AUTO) 1.7 10^3/uL (1.5-3.5); LYMPHOCYTES % (AUTO) 14.9 %; MEAN CORPUSCULAR HGB CONC 31.4 g/dL (32.0-36.0); MEAN CORPUSCULAR VOLUME 92.2 fL (80.0-94.0); MEAN PLATELET VOLUME 10.2 fL (7.4-11.4); MONOCYTES # (AUTO) 0.3 10^3/uL (0.0-1.0); MONOCYTES % (AUTO) 2.3 %; NEUTROPHILS # (AUTO) 9.5 10^3/uL (1.5-6.6); PLT - PLATELET COUNT 209 10^3/uL (130-450); RED BLOOD COUNT 3.73 10^6/uL (4.70-6.10); RED CELL DISTRIBUTION WIDTH 13.2 % (12.0-15.0); WHITE BLOOD COUNT 11.6 x10^3/uL (4.8-10.8)
[2024-07-14 17:38] LABS: PT - PROTHROMBIN TIME 57.5 secs (9.9-12.6)
[2024-07-14 17:43] LABS: ALBUMIN 3.7 g/dL (3.2-5.5); ALBUMIN/GLOBULIN RATIO 1.5 (1.0-2.2); BILIRUBIN,TOTAL 1.1 mg/dL (0.2-1.0); CALCIUM 8.9 mg/dL (8.5-10.3); CREATININE 1.2 mg/dL (0.6-1.3); POTASSIUM 4.4 mmol/L (3.5-4.5); TOTAL PROTEIN 6.2 g/dL (6.4-8.9)
[2024-07-14 17:50] LABS: INR 5.9 (0.8-1.2)
[2024-07-14 17:57] LABS: THYROID STIMULATING HORMONE 1.49 uIU/mL (0.34-5.60)
[2024-07-14] MEDS: PROPOFOL 200 MG/20 ML VIAL IVP STA (19:23)
[2024-07-14] MEDS: AMIODARONE 150 MG/3 ML VIAL IVP STA ×2 (19:28→20:34)
--- NOTE | 2024-07-14 20:01 | XRAY Report ---
PROCEDURE: XR Chest 1V INDICATIONS: afib TECHNIQUE: One view of the chest was acquired. COMPARISON: CT 08/03/2021, 10/14/2020 FINDINGS: Surgical changes and devices: Pacing pads Lungs and pleura: Low lung volumes. No dense airspace disease or pleural effusions. Mediastinum: Normal heart size is unchanged Bones and chest wall: Degenerative findings IMPRESSION: Low lung volumes. No acute abnormality identified on single view study. Reviewed by: Krzysztof Pan MD on 07/14/2024 8:00 PM PST Approved by: Krzysztof Pan MD on 07/14/2024 8:00 PM PST Station ID: [id number]
[2024-07-14] MEDS: SODIUM CHLORIDE 0.9% 1,000 ML IV STA (20:07)
[2024-07-14] MEDS: AMIODARONE 360 MG/200 ML 200 ML IV ONE (20:41)
--- NOTE | 2024-07-14 20:55 | HISTORY & PHYSICAL EXAMINATION ---
Chief Complaint Chief Complaint Chief Complaint: weak and dizzy History of Present Illness Admitted From Admitted From:: home History Obtained From Records Reviewed: last PCP visit 05/04/24 History of Present Illness HPI Comment/Other: 69-year-old male who presents to the emergency department with complaints of being weak and dizzy. He was seen in our emergency department yesterday diagnosed with hemorrhoids after having several episodes of rectal bleeding prior to presentation. At that time his INR was noted to be 5.9. He was instructed not to continue taking Coumadin. He could not tell anyone why he is on Coumadin. He does not think he has atrial fibrillation. He states that he takes the Coumadin whenever he thinks he needs it. Of note he is also on meloxicam for neck pain. In any event called the ambulance this evening for dizziness and lightheaded and was found to be in A-fib with RVR. Was given diltiazem IV to treat a heart rate which was in the 140s which was reduced to 80 with diltiazem. Since he has been in the emergency department he has been cardioverted as this was thought to potentially be new onset atrial fibrillation. When he was treated with propofol prior to cardioversion he had onset of hypotension and bradycardia. After cardioversion he briefly converted to sinus rhythm but then went back into atrial fibrillation. He has been given 150 mg of amiodarone in the emergency department he will be given additional 150 mg of amiodarone and started on amiodarone three-step infusion. When I ask him if he sees a heart doctor he says he does not think so however he did tell the emergency department that he has previously seen a automobile salesman at [facility]. When asked about CODE STATUS he states that he does want everything done. When asked about surrogate decision maker he does not seem to be able to understand why he would not be competent to make his medical decisions at all times. We will have further code discussions tomorrow Meds/Allgy Home Medications Ambulatory Orders Medication Instructions Recorded Confirmed losartan 50 mg tablet 50 mg PO DAILY #90 tabs 05/04/24 07/14/24 meloxicam 7.5 mg tablet 7.5 mg PO QDAY PRN Pain #30 tabs 05/04/24 07/14/24 hydrocortisone acetate 25 mg 25 mg [place] BID #12 ea 07/13/24 07/14/24 rectal suppository (Anucort-HC) Allergies Allergies Allergy/AdvReac Type Severity Reaction Status Date / Time No Known Drug Allergies Allergy Verified 07/14/24 17:17 [facility] Surgical History Surgical History (Updated 05/04/24 @ 10:27 by Parrish Jackson, DOMINIC, EVANS, JENNI) 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 and With family (15 year old daughter) Support Person: Yes Relationship: Physical Activity: Walking Level: Independent Do you feel safe in your home environment?: Yes Suffered physical, verbal, emotional, or financial abuse?: No History of Abuse: No ETOH Use: None Substance Use: denies use Are you sexually active?: No Occupation: [employer] Are you following a diet prescribed by a doctor: No Are you following a special diet: No POLST Patient has POLST: No Review of Systems Status of ROS: 10 or more systems reviewed and unremarkable except as noted in history and below Constitutional Reports: Fatigue; Denies: Fever, Chills or Malaise Eyes Denies: Blurry vision Ears, nose, mouth, and throat Denies: Change in hearing Cardiovascular Denies: Irregular heart rate, chest pain, palpitations or shortness of breath with exertion Respiratory Denies: Shortness of breath Gastrointestinal Reports: Abdominal pain, Melena and Blood in stool Integumentary/Breast Denies: Rash Neurological Reports: General weakness Endocrine Reports: Fatigue Hematologic/Lymphatic Reports: Easy bleeding Prior Level of Functionality: independent. drives. able to complete all ADLs. lives with , and teenage son (18 yo) Exam Constitutional normal general appearance and no apparent distress [facility] normocephalic Eyes conjunctivae normal Neck/C-Spine visual inspection normal Lymph no lymphadenopathy noted Chest inspection of chest normal and palpation of chest normal Respiratory breath sounds equal bilaterally, normal respiratory effort and clear to auscultation bilaterally Cardiovascular regular rhythm noted (irregularly irregular), no murmur, no additional abnormal heart sounds and no edema Gastrointestinal abdomen distended Extremities normal to inspection Neurology no movement abnormality noted and GCS 15 Psychiatry mental status grossly normal, oriented x3 and affect normal Skin skin color normal Conclusion/Plan Problem List (1) Atrial fibrillation with rapid ventricular response: Plan: Question if this is new onset atrial fibrillation. Patient cannot give any history of atrial fibrillation but has a history of warfarin prescription and takes warfarin "when I need it" definitely is supratherapeutic on his INR and cannot give a good medication history. I am admitting the patient to the ICU. I have decided to do this after discussing with Dr. Knutson. he has been cardioverted in the ED. His blood pressures are steadily improving. his heart rate is not rising significantly. I will continue loading him with amiodarone. He has been given 150 mg of amiodarone in the emergency department he will be given additional 150 mg of amiodarone and started on amiodarone three-step infusion. I will treat him with metoprolol overnight; hold for systolic blood pressure less than 110 or heart rate less than 90. I will check serial troponins. I have ordered echocardiogram for the a.m. I will keep the patient on telemetry monitoring. (2) ABLA (acute blood loss anemia): Plan: Acute blood loss anemia most likely related to his hemorrhoids. Hemoglobin drop of 4 points overnight. Most likely exacerbated by his supratherapeutic INR. Discussed with Dr. Bradshaw. Dr. Bradshaw has ordered FFP to be given in the emergency department. We will check the INR in the AM. I will order type and screen. Will transfuse if Hgb <8. (3) Supratherapeutic INR: Plan: INR 5.9. Patient is a poor historian. There is no history of atrial fibrillation that he can relate to me, or in his last clinic note from April. There is no medication history given in clinic visits of warfarin. I do not have any record of him being on warfarin. In reviewing the [place] medical record I can see a nurse visit for INR as far back as 2017. I see multiple pulmonary emboli as a diagnosis in the chart and PE as an indication for Coumadin in the chart. I see a diagnosis newly listed in December 2021 of atrial fibrillation with RVR; I did not see this diagnosis prior to that time. So it is possible that he has previously been anticoagulated for both PE and atrial fibrillation (4) Hypertension: Plan: hold home losartan for now. Will treat a fib. has been hypotensive in ED to 80s over 50s but steadily improving with treatment. Plan I have spent 76 minutes in the care of this patient today. This includes time [id number], review and ordering of diagnostic imaging and laboratory studies and consultation with other providers. Monitoring the patient's signs symptoms, evaluation of medication effectiveness and patient's response to treatment. Lab Results Lab results reviewed: Yes 07/14/24 17:23 07/14/24 17:23 Core Measures Anticipated LOS I expect patient to be DC'd or transferred within 96 hours.: Yes Issues Hospital Issues and Management Plan: a fib of undetermined chronicity. observe for decreasing H/H. serial troponins/ tele for heart rhythm. echo in AM. DVT/VTE - Prophylaxis VTE/DVT Device ordered at admit?: Yes VTE/DVT Prophylaxis med ordered at admit?: No Not Ordered - Medical Reason: Not indicated (elevated INR, bleeding with h/h drop)
[2024-07-14] MEDS ORDERED: AMIODARONE 360 MG/200 ML 200 ML IV SCH ×2 (21:00→22:16)
[2024-07-14] MEDS ORDERED: ACETAMINOPHEN 325 MG TABLET PO PRN (22:16)
[2024-07-14] MEDS: METOPROLOL 5 MG/5 ML VIAL IVP SCH (23:03)
--- NOTE | 2024-07-14 23:37 | PROVIDER PROGRESS NOTE ---
Senior [employer] Consultant Note Senior [employer] Consultant Note Senior [employer] Consultant Note: RN paged " PT admitted to ICU for afib RVR for amioderone gtt, pt received first bolus dose and is now on the second second bag that is ordered for 12 hour infusion. "0.5 mg/min" No titrations ED started this order and had titrated rate to "1mg/min" secondary to heart rate in the 100's sustaining. Requesting reorder/clarification for what dosage to keep. Current vitals: Heart rate: 88 117/70 98% on Room air, denies any pain." orders reviewed. stopped all amiodarone orders then reordered amiodarone q12hr at 0.5mg/min. hold amiodarone drip if HR<60 anticipating if HR continues controlled that day team will transition to oral amiodarone or continue on metoprolol for rate control. Jayce Buck
[2024-07-14] MEDS: AMIODARONE 360 MG/200 ML 200 ML IV SCH (23:44)
[2024-07-14] MEDS: SODIUM CHLORIDE FLUSH 0.9% 10 ML SYRINGE IVP SCH (23:45)
[2024-07-15 04:49] LABS: BASOPHILS % (AUTO) 0.2 %; EOSINOPHILS % (AUTO) 0.1 %; HCT - HEMATOCRIT 25.7 % (42.0-52.0); LYMPHOCYTES # (AUTO) 3.8 10^3/uL (1.5-3.5); LYMPHOCYTES % (AUTO) 21.5 %; MEAN CORPUSCULAR HEMOGLOBIN 29.2 pg (27.0-31.0); MEAN CORPUSCULAR HGB CONC 31.1 g/dL (32.0-36.0); MEAN CORPUSCULAR VOLUME 93.8 fL (80.0-94.0); MEAN PLATELET VOLUME 10.6 fL (7.4-11.4); MONOCYTES # (AUTO) 0.9 10^3/uL (0.0-1.0); MONOCYTES % (AUTO) 5.1 %; NEUTROPHILS # (AUTO) 12.8 10^3/uL (1.5-6.6); NEUTROPHILS % (AUTO) 72.5 %; PLT - PLATELET COUNT 163 10^3/uL (130-450); RED BLOOD COUNT 2.74 10^6/uL (4.70-6.10); RED CELL DISTRIBUTION WIDTH 13.4 % (12.0-15.0); WHITE BLOOD COUNT 17.6 x10^3/uL (4.8-10.8)
[2024-07-15 05:04] LABS: INR 3.2 (0.8-1.2); PT - PROTHROMBIN TIME 32.2 secs (9.9-12.6)
[2024-07-15 05:08] LABS: CALCIUM 8.4 mg/dL (8.5-10.3); CREATININE 1.2 mg/dL (0.6-1.3); POTASSIUM 4.6 mmol/L (3.5-4.5)
[2024-07-15] MEDS: ONDANSETRON ODT 4 MG TABLET TL PRN (08:02)
--- NOTE | 2024-07-15 10:29 | PROVIDER PROGRESS NOTE ---
Subjective Prog Note Date Prog Note Date: 07/15/24 Subjective Subjective: continues to have abdominal bloating. ate 50% of breakfast Current Medications Current Medications Current Medications: Current Medications Generic Name Dose Route Start Last Admin Trade Name Freq PRN Reason Stop Dose Admin Acetaminophen 650 mg 07/14/24 22:16 Acetaminophen 325 Mg Tablet PO Q4HR PRN Pain 1 to 4, or Fever Amiodarone HCl/Dextrose 200 mls @ 16.667 mls/hr 07/14/24 23:45 07/15/24 04:39 Nexterone 360 Mg/200 Ml IV 0.5 mg/min .Q12H DELTA 16.67 mls/hr Administration 0.5 MG/MIN Metoprolol Tartrate 5 mg 07/14/24 22:16 07/15/24 09:49 Metoprolol 5 Mg/5 Ml Vial IVP Not Given Q6H DELTA Ondansetron HCl 4 mg 07/14/24 22:16 07/15/24 08:02 Ondansetron Odt 4 Mg Tablet TL 4 mg Q6HR PRN Administration Nausea / Vomiting Sodium Chloride 10 ml 07/14/24 22:16 Sodium Chloride Flush 0.9% 10 Ml Syringe IVP PRN PRN NEEDED PER PROVIDER ORDERS Sodium Chloride 10 ml 07/15/24 01:00 07/15/24 08:04 Sodium Chloride Flush 0.9% 10 Ml Syringe IVP 10 ml 0100,0900,1700 DELTA Administration Objective Vital Signs/Intake & Output Reviewed Vital Signs: Yes Vital Signs: Vital Signs x48h Temp Pulse Pulse Resp BP BP Pulse Ox 07/15/24 10:00 87 87/44 L 07/15/24 09:49 84 91/53 L 07/15/24 09:30 84 91/53 L 07/15/24 09:00 92 19 122/62 94 07/15/24 08:00 37.0 C 90 20 123/66 97 07/15/24 07:46 117 H 90/62 07/15/24 07:00 95 20 114/70 97 07/15/24 06:00 36.5 C 87 20 117/67 97 07/15/24 05:00 87 27 H 102/65 96 07/15/24 04:00 92 21 105/69 97 07/15/24 03:00 103 H 15 123/74 97 Intake & Output: Intake & Output 07/12/24 07/13/24 07/14/24 07/15/24 23:59 23:59 23:59 23:59 Intake Total 1200 / 1200 322 / 322 Output Total 125 / 125 Balance 1200 / 1200 197 / 197 Weight (kg) 76 kg Objective General Appearance: positive No acute distress and Alert Eyes Bilateral: positive Normal inspection and Conjunctivae nml (pale) ENT: positive ENT inspection nml Neck: positive Nml inspection Respiratory: positive No respiratory distress and Breath sounds nml Cardiovascular: positive Regular rate & rhythm Abdomen: positive Other (distended but non tender); negative No distention Back: positive Nml inspection Skin: positive Color nml Extremities: positive Non-tender and No pedal edema Neurologic/Psychiatric: positive Oriented x3 Lab Results 07/15/24 15:39 07/15/24 04:40 Other Labs: Lab Results x24hrs 07/15/24 07/15/24 07/14/24 Range/Units 09:09 04:40 22:37 WBC 17.6 H (4.8-10.8) x10^3/uL RBC 2.74 L (4.70-6.10) 10^6/uL Hgb 8.0 L (14.0-18.0) g/dL Hct 25.7 L (42.0-52.0) % MCV 93.8 (80.0-94.0) fL MCH 29.2 (27.0-31.0) pg MCHC 31.1 L (32.0-36.0) g/dL RDW 13.4 (12.0-15.0) % Plt Count 163 (130-450) 10^3/uL MPV 10.6 (7.4-11.4) fL Neut # (Auto) 12.8 H (1.5-6.6) 10^3/uL Lymph # (Auto) 3.8 H (1.5-3.5) 10^3/uL [place] # (Auto) 0.9 (0.0-1.0) 10^3/uL Eos # (Auto) 0.0 (0.0-0.7) 10^3/uL Baso # (Auto) 0.0 (0.0-0.1) 10^3/uL Absolute Nucleated RBC 0.00 x10^3/uL Nucleated RBC % 0.0 /100WBC PT 32.2 H (9.9-12.6) secs INR 3.2 H (0.8-1.2) Sodium 138 (135-145) mmol/L Potassium 4.6 H (3.5-4.5) mmol/L Chloride 109 (101-111) mmol/L Carbon Dioxide 25 (21-32) mmol/L Anion Gap 4.0 L (6-13) BUN 28 H (6-20) mg/dL Creatinine 1.2 (0.6-1.3) mg/dL Estimated GFR (MDRD) 60 L (>89) Glucose 123 H (74-104) mg/dL Calcium 8.4 L (8.5-10.3) mg/dL Magnesium 2.0 (1.7-2.3) mg/dL Total Bilirubin (0.2-1.0) mg/dL AST (10-42) IU/L ALT (10-60) IU/L Alkaline Phosphatase (42-121) IU/L Troponin I High Sens 5.1 4.3 (2.3-19.7) ng/L B-Natriuretic Peptide (5-100) pg/mL Total Protein (6.4-8.9) g/dL Albumin (3.2-5.5) g/dL Globulin (2.1-4.2) g/dL Albumin/Globulin Ratio (1.0-2.2) TSH (0.34-5.60) uIU/mL Nasal Screen MRSA (PCR) NEGATIVE (NEGATIVE) Blood Type Blood Type Recheck Antibody Screen 07/14/24 07/14/24 Range/Units 20:38 17:23 WBC 11.6 H (4.8-10.8) x10^3/uL RBC 3.73 L (4.70-6.10) 10^6/uL Hgb 10.8 L (14.0-18.0) g/dL Hct 34.4 L (42.0-52.0) % MCV 92.2 (80.0-94.0) fL MCH 29.0 (27.0-31.0) pg MCHC 31.4 L (32.0-36.0) g/dL RDW 13.2 (12.0-15.0) % Plt Count 209 (130-450) 10^3/uL MPV 10.2 (7.4-11.4) fL Neut # (Auto) 9.5 H (1.5-6.6) 10^3/uL Lymph # (Auto) 1.7 (1.5-3.5) 10^3/uL [place] # (Auto) 0.3 (0.0-1.0) 10^3/uL Eos # (Auto) 0.0 (0.0-0.7) 10^3/uL Baso # (Auto) 0.1 (0.0-0.1) 10^3/uL Absolute Nucleated RBC 0.00 x10^3/uL Nucleated RBC % 0.0 /100WBC PT 57.5 H (9.9-12.6) secs INR 5.9 H* (0.8-1.2) Sodium 137 (135-145) mmol/L Potassium 4.4 (3.5-4.5) mmol/L Chloride 106 (101-111) mmol/L Carbon Dioxide 25 (21-32) mmol/L Anion Gap 6.0 (6-13) BUN 26 H (6-20) mg/dL Creatinine 1.2 (0.6-1.3) mg/dL Estimated GFR (MDRD) 60 L (>89) Glucose 203 H (74-104) mg/dL Calcium 8.9 (8.5-10.3) mg/dL Magnesium 2.0 (1.7-2.3) mg/dL Total Bilirubin 1.1 H (0.2-1.0) mg/dL AST 16 (10-42) IU/L ALT 17 (10-60) IU/L Alkaline Phosphatase 57 (42-121) IU/L Troponin I High Sens 3.5 (2.3-19.7) ng/L B-Natriuretic Peptide 43 (5-100) pg/mL Total Protein 6.2 L (6.4-8.9) g/dL Albumin 3.7 (3.2-5.5) g/dL Globulin 2.5 (2.1-4.2) g/dL Albumin/Globulin Ratio 1.5 (1.0-2.2) TSH 1.49 (0.34-5.60) uIU/mL Nasal Screen MRSA (PCR) (NEGATIVE) Blood Type O POSITIVE Blood Type Recheck O POSITIVE Antibody Screen NEGATIVE Assessment/Plan Problem List (1) GI bleed: Impression: This AM a large BM with dark blood and clots in the toilets. Patient feels a bit better after that. had an additional BM of similar characteristics several hours later. September [address] Barkley- was admitted at that time. per dc summary EGD/Colonos showed small bleeding gastric ulcers as well as bleeding diverticuli. I have discussed this patient with Dr Tarango, general surgery this AM. I have made the patient NPO x meds. Dr Tarango will see the patient and decide if EGD today/colonoscopy tomorrow would be appropriate. Patient had an EGD today. This was clean there was no evidence of ulceration. Dr. Tarango is planning on colonoscopy for the patient tomorrow he will get a bowel prep and be n.p.o. after midnight. I received a call from Dr. Nowak radiologist at [facility]. The CTA of the abdomen shows a blush at the hepatic flexure indicative of possible active bleeding at the distal ascending colon. From the right colic artery. Dr. Fair is an interventional radiologist. I discussed the possibility of transferring the patient for embolization. Given the patient's current INR is 4.0 we will continue to reverse the INR and observe the patient for further signs and symptoms of bleeding. This was discussed with Dr. Tarango and he and I agreed that we would continue to prep the patient for colonoscopy and pivot towards IR embolization or diagnostic colonoscopy as indicated. (2) Atrial fibrillation with rapid ventricular response: Impression: questionable age of onset. cardioversion in ED failed. Metoprolol held overnight due to parameters. has converted to sinus rhythm on amiodarone. Anticipate eventual transition to po amiodarone and outpatient cardiology followup. he has had echocardiogram done, but not read. (3) ABLA (acute blood loss anemia): Impression: in the setting of GI bleeding and supratherapeutic INR. His hemoglobin dropped further this AM and he became symptomatic with BP 90's/50's. he was given 1L crystalloid and one unit of RBCs. he responded appropriately to this. I have spoken with general surgery regarding his GI bleeding. I will transfuse as indicated, I have asked blood bank to stay ahead 2 units. (4) Supratherapeutic INR: Impression: Patient with hx of PE per my chart review. There is also hx of a fib with RVR listed in the chart. It is unclear where he has been getting his coumadin. or who has been monitoring INR. Pharmacy has checked records and cannot find a record of this. It is likely that he is taking this without appropriate monitoring. possible that he has a leftover supply and taking it at home when he is not feeling well. He does not seem to understand the mechanism of action of the warfarin and why using it in this way can be quite harmful. definitely need home health on dischage for monitoring. Would consider not anticoagulating this patient given the fact that he has had GI bleed twice in the past once in 2020 and once now. (5) Hypertension: Impression: Currently hypotensive due to his anemia. He is being appropriately treated for this. I am holding his home antihypertensives. I have spent 65 minutes in the care of this patient today. This includes time [id number], review and ordering of diagnostic imaging and laboratory studies and consultation with other providers.. Monitoring the patient's signs symptoms, evaluation of medication effectiveness and patient's response to treatment.
[2024-07-15] MEDS: SODIUM CHLORIDE 0.9% 1,000 ML IV ONE (10:32)
[2024-07-15] MEDS: PANTOPRAZOLE 40 MG VIAL IVP SCH (10:34)
[2024-07-15] MEDS ORDERED: iohexoL-300 100 ML VIAL ONE (10:39)
[2024-07-15] MEDS: iohexoL-300 100 ML VIAL IVP ONE (11:53)
--- NOTE | 2024-07-15 14:45 | CONSULTATION NOTE ---
Chief Complaint Chief Complaint Chief Complaint: bloody stool History of Present Illness Admitted From Admitted From:: ed History Obtained From Records Reviewed: yes History obtained from: pt and hospitalist Exam Limitations: none History of Present Illness HPI Comment/Other: couple days bloody and dark stool. still having bloody stool. inr yesterday nearly 6. 3 today. egd and colonoscopy 2020 for anemia. mild chronic gastritis. no h pylori. colonoscopy diverticula. no polyps Meds/Allgy Home Medications Ambulatory Orders Medication Instructions Recorded Confirmed losartan 50 mg tablet 50 mg PO DAILY #90 tabs 05/04/24 07/14/24 meloxicam 7.5 mg tablet 7.5 mg PO QDAY PRN Pain #30 tabs 05/04/24 07/14/24 hydrocortisone acetate 25 mg 25 mg [place] BID #12 ea 07/13/24 07/14/24 rectal suppository (Anucort-HC) Allergies Allergies Allergy/AdvReac Type Severity Reaction Status Date / Time No Known Drug Allergies Allergy Verified 07/14/24 17:17 [facility] Surgical History Surgical History (Updated 05/04/24 @ 10:27 by Parrish Jackson, DOMINIC, CHISEL MORTISER OPERATOR, BATTERY INSPECTOR) 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 and With family (15 year old daughter) Support Person: Yes Relationship: Physical Activity: Walking Level: Independent Do you feel safe in your home environment?: Yes Suffered physical, verbal, emotional, or financial abuse?: No History of Abuse: No ETOH Use: None Substance Use: denies use Are you sexually active?: No Occupation: [employer] Are you following a diet prescribed by a doctor: No Are you following a special diet: No POLST Patient has POLST: No Results Lab Results Lab results reviewed: Yes 07/15/24 10:52 07/15/24 04:40 Other Lab Results: Lab Results x24hrs 07/15/24 07/15/24 07/15/24 Range/Units 10:52 09:09 04:40 WBC 17.6 H (4.8-10.8) x10^3/uL RBC 2.74 L (4.70-6.10) 10^6/uL Hgb 6.3 L* 8.0 L (14.0-18.0) g/dL Hct 25.7 L (42.0-52.0) % MCV 93.8 (80.0-94.0) fL MCH 29.2 (27.0-31.0) pg MCHC 31.1 L (32.0-36.0) g/dL RDW 13.4 (12.0-15.0) % Plt Count 163 (130-450) 10^3/uL MPV 10.6 (7.4-11.4) fL Neut # (Auto) 12.8 H (1.5-6.6) 10^3/uL Lymph # (Auto) 3.8 H (1.5-3.5) 10^3/uL [place] # (Auto) 0.9 (0.0-1.0) 10^3/uL Eos # (Auto) 0.0 (0.0-0.7) 10^3/uL Baso # (Auto) 0.0 (0.0-0.1) 10^3/uL Absolute Nucleated RBC 0.00 x10^3/uL Nucleated RBC % 0.0 /100WBC PT 32.2 H (9.9-12.6) secs INR 3.2 H (0.8-1.2) Sodium 138 (135-145) mmol/L Potassium 4.6 H (3.5-4.5) mmol/L Chloride 109 (101-111) mmol/L Carbon Dioxide 25 (21-32) mmol/L Anion Gap 4.0 L (6-13) BUN 28 H (6-20) mg/dL Creatinine 1.2 (0.6-1.3) mg/dL Estimated GFR (MDRD) 60 L (>89) Glucose 123 H (74-104) mg/dL Calcium 8.4 L (8.5-10.3) mg/dL Magnesium 2.0 (1.7-2.3) mg/dL Total Bilirubin (0.2-1.0) mg/dL AST (10-42) IU/L ALT (10-60) IU/L Alkaline Phosphatase (42-121) IU/L Troponin I High Sens 5.1 4.3 (2.3-19.7) ng/L B-Natriuretic Peptide (5-100) pg/mL Total Protein (6.4-8.9) g/dL Albumin (3.2-5.5) g/dL Globulin (2.1-4.2) g/dL Albumin/Globulin Ratio (1.0-2.2) TSH (0.34-5.60) uIU/mL Nasal Screen MRSA (PCR) (NEGATIVE) Blood Type Blood Type Recheck Antibody Screen Crossmatch IS Only 07/14/24 07/14/24 07/14/24 Range/Units 22:37 20:38 17:23 WBC 11.6 H (4.8-10.8) x10^3/uL RBC 3.73 L (4.70-6.10) 10^6/uL Hgb 10.8 L (14.0-18.0) g/dL Hct 34.4 L (42.0-52.0) % MCV 92.2 (80.0-94.0) fL MCH 29.0 (27.0-31.0) pg MCHC 31.4 L (32.0-36.0) g/dL RDW 13.2 (12.0-15.0) % Plt Count 209 (130-450) 10^3/uL MPV 10.2 (7.4-11.4) fL Neut # (Auto) 9.5 H (1.5-6.6) 10^3/uL Lymph # (Auto) 1.7 (1.5-3.5) 10^3/uL [place] # (Auto) 0.3 (0.0-1.0) 10^3/uL Eos # (Auto) 0.0 (0.0-0.7) 10^3/uL Baso # (Auto) 0.1 (0.0-0.1) 10^3/uL Absolute Nucleated RBC 0.00 x10^3/uL Nucleated RBC % 0.0 /100WBC PT 57.5 H (9.9-12.6) secs INR 5.9 H* (0.8-1.2) Sodium 137 (135-145) mmol/L Potassium 4.4 (3.5-4.5) mmol/L Chloride 106 (101-111) mmol/L Carbon Dioxide 25 (21-32) mmol/L Anion Gap 6.0 (6-13) BUN 26 H (6-20) mg/dL Creatinine 1.2 (0.6-1.3) mg/dL Estimated GFR (MDRD) 60 L (>89) Glucose 203 H (74-104) mg/dL Calcium 8.9 (8.5-10.3) mg/dL Magnesium 2.0 (1.7-2.3) mg/dL Total Bilirubin 1.1 H (0.2-1.0) mg/dL AST 16 (10-42) IU/L ALT 17 (10-60) IU/L Alkaline Phosphatase 57 (42-121) IU/L Troponin I High Sens 3.5 (2.3-19.7) ng/L B-Natriuretic Peptide 43 (5-100) pg/mL Total Protein 6.2 L (6.4-8.9) g/dL Albumin 3.7 (3.2-5.5) g/dL Globulin 2.5 (2.1-4.2) g/dL Albumin/Globulin Ratio 1.5 (1.0-2.2) TSH 1.49 (0.34-5.60) uIU/mL Nasal Screen MRSA (PCR) NEGATIVE (NEGATIVE) Blood Type O POSITIVE Blood Type Recheck O POSITIVE Antibody Screen NEGATIVE Crossmatch IS Only See Detail Review of Systems Status of ROS: 10 or more systems reviewed and unremarkable except as noted in history and below Exam Constitutional normal general appearance and no apparent distress [facility] normocephalic and head/scalp atraumatic Eyes PERRL, EOMs intact bilaterally and no scleral icterus Neck/C-Spine trachea midline Respiratory normal respiratory effort Cardiovascular normal heart rate noted and regular rhythm noted Gastrointestinal nondistended Neurology speech normal and GCS 15 Psychiatry oriented x3, thought process normal, cooperative and affect normal Conclusion/Plan Problem List (1) GI bleed: Plan: plan upper endoscopy today/ soon and if unremarkable plan colonoscopy tomorrow after bowel prep. parq held and consent obtained. agree with current care. (2) Atrial fibrillation with rapid ventricular response: (3) ABLA (acute blood loss anemia): (4) Supratherapeutic INR: (5) Hypertension: Lab Results Lab results reviewed: Yes 07/15/24 10:52 07/15/24 04:40
--- NOTE | 2024-07-15 14:53 | ANESTHESIA PROCEDURE NOTE ---
Pre-Anesthesia VS, & Labs Diagnosis Surgical Diagnosis:: GI bleed Procedure Procedure: EGD Vitals Vital Signs: Temp Pulse Resp BP Pulse Ox O2 Flow Rate 36.6 C 87 22 117/69 98 15 07/15/24 13:30 07/15/24 14:00 07/15/24 14:00 07/15/24 14:00 07/15/24 14:00 07/14/24 19:49 NPO NPO: >8 hours Lab Results Current Lab Results: Laboratory Tests 07/15/24 10:52: Hgb 6.3 L* 07/15/24 09:09: Troponin I High Sens 5.1 07/15/24 04:40: WBC 17.6 H, RBC 2.74 L, Hgb 8.0 L, Hct 25.7 L, MCV 93.8, MCH 29.2, MCHC 31.1 L, RDW 13.4, Plt Count 163, MPV 10.6, Neut # (Auto) 12.8 H, L ymph # (Auto) 3.8 H, [place] # (Auto) 0.9, Eos # (Auto) 0.0, Baso # (Auto) 0.0, Absolute Nucleated RBC 0.00, Nucleated RBC % 0.0, PT 32.2 H, INR 3.2 H, Sodium 138, Potassium 4.6 H, Chloride 109, Carbon Dioxide 25, Anion Gap 4.0 L, BUN 28 H , Creatinine 1.2, Estimated GFR (MDRD) 60 L, Glucose 123 H, Calcium 8.4 L, Magnesium 2.0, Troponin I High Sens 4.3 07/14/24 20:38: Blood Type O POSITIVE, Antibody Screen NEGATIVE, Crossmatch IS Only See Detail 07/14/24 17:23: WBC 11.6 H, RBC 3.73 L, Hgb 10.8 L, Hct 34.4 L, MCV 92.2, MCH 29.0, MCHC 31.4 L, RDW 13.2, Plt Count 209, MPV 10.2, Neut # (Auto) 9.5 H, Lymph # (Auto) 1.7, [place] # (Auto) 0.3, Eos # (Auto) 0.0, Baso # (Auto) 0.1, Absolute Nucleated RBC 0.00, Nucleated RBC % 0.0, PT 57.5 H, INR 5.9 H*, Sodium 137, Potassium 4.4, Chloride 106, Carbon Dioxide 25, Anion Gap 6.0, BUN 26 H, Creatinine 1.2, Estimated GFR (MDRD) 60 L, Glucose 203 H, Calcium 8.9, Magnesium 2.0, Total Bilirubin 1.1 H, AST 16, ALT 17, Alkaline Phosphatase 57, Troponin I High Sens 3.5, B-Natriuretic Peptide 43, Total Protein 6.2 L, Albumin 3.7, Globulin 2.5, Albumin/Globulin Ratio 1.5, TSH 1.49, Blood Type Recheck O POSITIVE 07/15/24 10:52 07/15/24 04:40 Meds/Allgy Home Medications Ambulatory Orders Medication Instructions Recorded Confirmed losartan 50 mg tablet 50 mg PO DAILY #90 tabs 05/04/24 07/14/24 meloxicam 7.5 mg tablet 7.5 mg PO QDAY PRN Pain #30 tabs 05/04/24 07/14/24 hydrocortisone acetate 25 mg 25 mg [place] BID #12 ea 07/13/24 07/14/24 rectal suppository (Anucort-HC) Allergies Allergies Allergy/AdvReac Type Severity Reaction Status Date / Time No Known Drug Allergies Allergy Verified 07/14/24 17:17 [facility] Surgical History Surgical History (Updated 05/04/24 @ 10:27 by Parrish Jackson DNP, EVANS, JENNI) 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 and With family (15 year old daughter) Support Person: Yes Relationship: Physical Activity: Walking Level: Independent Do you feel safe in your home environment?: Yes Suffered physical, verbal, emotional, or financial abuse?: No History of Abuse: No ETOH Use: None Substance Use: denies use Are you sexually active?: No Occupation: [employer] Are you following a diet prescribed by a doctor: No Are you following a special diet: No POLST Patient has POLST: No Anesthesia Exam (Expanded) Exam General: Alert, Oriented x3 and Cooperative Dental: WNL Mouth Opening: Greater than 4 Fingerbreadths Neck Mobility: Normal Mallampati classification: II Thyromental Distance: 4-6 cm Respiratory: Lungs clear Cardiovascular: Regular rate Plan Problem List (1) GI bleed: Plan: plan upper endoscopy today/ soon and if unremarkable plan colonoscopy tomorrow after bowel prep. parq held and consent obtained. agree with current care. (2) Atrial fibrillation with rapid ventricular response: (3) ABLA (acute blood loss anemia): (4) Supratherapeutic INR: (5) Hypertension: (6) Abnormal INR: (7) Hemorrhoid: Plan Anesthesia Type: Total IV Consent for Procedure(s) Verified and Reviewed: Yes Code Status: Attempt Resuscitation ASA Classification ASA classification: 3-Severe systemic disease Is this case an emergency?: Yes
[2024-07-15] MEDS ORDERED: LIDOCAINE-MPF 2% 5 ML VIAL ONE (14:59)
[2024-07-15] MEDS ORDERED: PROPOFOL 200 MG/20 ML VIAL IVP ONE (14:59)
--- NOTE | 2024-07-15 15:26 | PHARMACY PROGRESS NOTE ---
Best Possible Medication History Admit Date and Time: 07/15/24 1021 Home Medications Medication Instructions Recorded Confirmed Type losartan 50 mg tablet 50 mg PO DAILY #90 tabs 05/04/24 07/14/24 Rx meloxicam 7.5 mg tablet 7.5 mg PO QDAY PRN Pain #30 tabs 05/04/24 07/14/24 Rx hydrocortisone acetate 25 mg 25 mg [place] BID #12 ea 07/13/24 07/14/24 Rx rectal suppository (Anucort-HC) Processed by: Pharmacy Medications reviewed in ED?: Yes Medication History completed: Yes Patient Interview: Completed Secondary Source(s): Pharmacy records and Insurance records [facility] Statement: patient also reported taking Warfarin at home as needed. no records of warfarin exist with pcp and patient has been advised not to take in the last admission here so it is being left off of list to prevent being ordered by mistake in the future. As the person ultimately responsible for medication therapy, providers are able to order a medication from an existing home medication list in [facility] via the "Reconcile Routine" prior to Confirmation of that medication by support associate. Such practice is discouraged except when the physician, in their clinical judgment, deems that a medical need exists for a medication without regard to previous use.
--- NOTE | 2024-07-15 15:35 | OPERATIVE REPORT ---
Operative Report General Admit Date: 07/15/24 Procedure Data: Operation Date: 07/15/2024 Proposed Procedures p egd (Not Applicable) - Luis Tarango MD Anesthesia Type General Pre-Op Diagnosis: gi bleed Post Op Diagnosis: normal upper endoscopy Procedure Note Pathology: none Indications: gi bleeding. dark and bloody stool Findings: normal upper endoscopy Other Other Information/Narrative: recommend/ plan colonoscopy after bowel prep. if ct angio positive recommend transfer to facility that has IR
--- NOTE | 2024-07-15 15:42 | ANESTHESIA POST OP EVALUATION ---
Anesthesia Post Eval Post Anesthesia Eval Vitals: Last Vital Signs Temp 36.6 C 07/15/24 13:30 Pulse 88 07/15/24 15:00 Resp 19 07/15/24 15:00 BP 125/72 07/15/24 15:00 Pulse Ox 93 07/15/24 15:00 O2 Flow Rate 15 07/14/24 19:49 CV Function Including HR & BP: Stable Pain Control: Satisfactory Nausea & Vomiting: Negative Mental Status: Baseline Respiratory Status: Airway Patent Hydration Status: Satisfactory Anesthesia Complications: None Other Details/Therapies Other Details/Therapies: returned to ICU by Wilfredo MICHAUD, report given to ICU nurse
[2024-07-15 15:56] LABS: PT - PROTHROMBIN TIME 39.9 secs (9.9-12.6)
--- NOTE | 2024-07-15 16:06 | CT Report ---
PROCEDURE: CT Angio Abdomen/Pelvis INDICATIONS: GI bleed CONTRAST: 100 mL Omnipaque 300 TECHNIQUE: After the administration of intravenous contrast, 2.5 mm thick sections acquired from the diaphragm t o the symphysis. 10 mm maximum-intensity projection (MIP) reformats were then acquired. For radiati on dose reduction, the following was used: automated exposure control, adjustment of mA and/or kV ac cording to patient size. COMPARISON: CT of the abdomen and pelvis with contrast from 10/14/2020. CT chest without contrast fr om 08/03/2021. FINDINGS: Image quality: Diagnostic. VESSELS: Aorta: Partially imaged fusiform dilatation of the mid ascending aorta measuring upwards of 4.2 cm i n greatest diameter (series 13, image 18). Abdominal aorta appears normal in caliber without abdominal aortic aneurysm, dissection or significan t stenosis. Mesenteric arteries: Small focus of intraluminal contrast on arterial phase within the distal ascending colon near the hep atic flexure (series 13, image 124) that pools on additional delayed venous imaging compatible with a ctive GI bleeding. Celiac artery and associated branches are patent. SMA is patent. Both renal arteries are patent. ALISE is patent. Right pelvic arteries: Common iliac artery is patent. External iliac artery is patent. Internal iliac artery and associated branches are patent. Common femoral artery is patent. Visualized portions of proximal SFA and profunda femoris arteries are patent. Left pelvic arteries: Common iliac artery is patent. External iliac artery is patent. Internal iliac artery and associated branches are patent. Common femoral artery is patent. Visualized portions of proximal SFA and profunda femoris arteries are patent. CHEST: Lung bases and heart: Peribronchial opacity involving the extreme right lung base likely scar versus atelectasis. ABDOMEN: Liver: No solid mass. Gallbladder and biliary tree: Calcified gallstones within the gallbladder lumen. No gallbladder wall thickening or pericholecystic fluid. No intra or extrahepatic biliary ductal dilatation. Spleen: No splenomegaly. Pancreas: No focal pancreatic mass. The pancreatic duct dilatation. Adrenals: No adrenal nodule. Kidneys and ureters: 5 mm nonobstructing stone upper pole left kidney (series 4, image 94). No other renal or ureteral calculi. No evidence of hydronephrosis. No solid renal mass. Bowel and peritoneum: Small large bowel appear normal in caliber without evidence of bowel obstructio n. Colonic diverticulosis without evidence of diverticulitis. Normal appendix. Focus of active GI bleeding within the distal ascending colon as mentioned above. No abdominal or pelvic fluid collections to suggest abscess. No evidence of pneumoperitoneum. Lymph nodes: No central or retroperitoneal adenopathy. PELVIS Reproductive organs: Unremarkable. Bladder: No abnormal wall thickening, accounting for underdistension. Pelvic lymph nodes: No pelvic adenopathy by size criteria. Bones: No aggressive osseous abnormality. Other: Small right inguinal hernia containing fat. Small umbilical hernia containing fat. IMPRESSION: 1. Focus of active GI bleeding involving the distal ascending colon near the hepatic flexure associat ed with adjacent diverticulum likely diverticular bleed possibly from branch of right colic artery. 2. Cholelithiasis. 3. 5 mm nonobstructing left renal stone. Findings discussed with Jen Cates PA-C at the time of dictation. Reviewed by: Misha Nowak MD on 07/15/2024 4:05 PM PST Approved by: Misha Nowak MD on 07/15/2024 4:05 PM PST Station ID: [id number]
[2024-07-15] MEDS: PEG 3350/NA SULF,BICARB,CL/KCL 4,000 ML BOTTLE PO ONE (17:31)
[2024-07-15] MEDS: PHYTONADIONE 10 MG/ML AMP PO ONE (17:31)
[2024-07-15] MEDS: CHERRY SYRUP 10 ML UDC PO ONE (17:31)
[2024-07-15] MEDS ORDERED: SODIUM/POTASSIUM/MAG SULFATES 354 ML PREP KIT PO SCH (18:00)
[2024-07-16 05:13] LABS: BASOPHILS # (AUTO) 0.1 10^3/uL (0.0-0.1); BASOPHILS % (AUTO) 0.3 %; EOSINOPHILS % (AUTO) 0.1 %; LYMPHOCYTES # (AUTO) 2.6 10^3/uL (1.5-3.5); LYMPHOCYTES % (AUTO) 14.1 %; MEAN CORPUSCULAR HGB CONC 31.9 g/dL (32.0-36.0); MONOCYTES # (AUTO) 1.2 10^3/uL (0.0-1.0); MONOCYTES % (AUTO) 6.7 %; NEUTROPHILS # (AUTO) 14.3 10^3/uL (1.5-6.6); NEUTROPHILS % (AUTO) 77.4 %; NRBC ABSOLUTE COUNT (AUTO) 0.07 x10^3/uL; NUCLEATED RED BLOOD CELLS AUTO 0.4 /100WBC; PLT - PLATELET COUNT 127 10^3/uL (130-450); RED CELL DISTRIBUTION WIDTH 14.5 % (12.0-15.0); WHITE BLOOD COUNT 18.5 x10^3/uL (4.8-10.8)
[2024-07-16 05:17] LABS: HCT - HEMATOCRIT 19.1 % (42.0-52.0); HGB - HEMOGLOBIN 6.1 g/dL (14.0-18.0); INR 2.5 (0.8-1.2); PT - PROTHROMBIN TIME 25.7 secs (9.9-12.6)
[2024-07-16 05:31] LABS: CALCIUM 7.3 mg/dL (8.5-10.3); CREATININE 1.2 mg/dL (0.6-1.3); POTASSIUM 3.8 mmol/L (3.5-4.5)
[2024-07-16] MEDS ORDERED: PHYTONADIONE 10 MG/ML AMP ONE (07:55)
[2024-07-16] MEDS: PHYTONADIONE INJ (ADULT) 10 MG in SODIUM CHLORIDE 0.9% 50 ML IV ONE (08:04)
--- NOTE | 2024-07-16 10:36 | PROVIDER PROGRESS NOTE ---
Subjective Prog Note Date Prog Note Date: 07/16/24 Subjective Subjective: Large bloody BM this AM again. feels weak. not getting out of bed again per RNs. Patient is prepped for colonoscopy- continues to have blood mixed in with prep. Current Medications Current Medications Current Medications: Current Medications Generic Name Dose Route Start Last Admin Trade Name Freq PRN Reason Stop Dose Admin Acetaminophen 650 mg 07/14/24 22:16 Acetaminophen 325 Mg Tablet PO Q4HR PRN Pain 1 to 4, or Fever Amiodarone HCl/Dextrose 200 mls @ 16.667 mls/hr 07/14/24 23:45 07/16/24 05:16 Nexterone 360 Mg/200 Ml IV 0.5 mg/min .Q12H DELTA 16.67 mls/hr Administration 0.5 MG/MIN Ondansetron HCl 4 mg 07/14/24 22:16 07/15/24 08:02 Ondansetron Odt 4 Mg Tablet TL 4 mg Q6HR PRN Administration Nausea / Vomiting Pantoprazole Sodium 40 mg 07/15/24 11:00 07/16/24 08:00 Pantoprazole 40 Mg Vial IVP 40 mg BID DELTA Administration Sodium Chloride 10 ml 07/14/24 22:16 Sodium Chloride Flush 0.9% 10 Ml Syringe IVP PRN PRN NEEDED PER PROVIDER ORDERS Sodium Chloride 10 ml 07/15/24 01:00 07/16/24 08:04 Sodium Chloride Flush 0.9% 10 Ml Syringe IVP 10 ml 0100,0900,1700 DELTA Administration Objective Vital Signs/Intake & Output Reviewed Vital Signs: Yes Vital Signs: Vital Signs x48h Temp Pulse Resp BP BP Pulse Ox 07/16/24 10:00 99 17 112/74 97 07/16/24 09:35 115 H 16 115/77 94 07/16/24 09:32 37.0 C 102 H 19 115/77 98 07/16/24 09:20 37.0 C 105 H 18 106/80 97 07/16/24 09:13 37.0 C 110 H 19 116/77 97 07/16/24 09:06 37.0 C 106 H 14 116/77 99 07/16/24 09:00 119 H 19 106/78 100 07/16/24 08:51 37.0 C 99 20 106/78 100 07/16/24 08:36 37.3 C 07/16/24 08:35 37.3 C 104 H 20 125/82 100 07/16/24 08:32 37.3 C 104 H 20 125/82 100 07/16/24 08:00 109 H 20 133/75 H 98 07/16/24 07:01 98 18 114/77 97 07/16/24 06:14 37.1 C 94 17 114/68 97 07/16/24 06:00 92 20 129/70 95 07/16/24 05:58 36.9 C 94 19 128/72 96 07/16/24 05:00 91 20 114/69 96 07/16/24 04:00 92 19 124/74 93 07/16/24 03:00 99 19 124/68 96 Intake & Output: Intake & Output 07/13/24 07/14/24 07/15/24 07/16/24 23:59 23:59 23:59 23:59 Intake Total 1200 / 1200 2632 / 2632 989 / 989 Output Total 125 / 125 Balance 1200 / 1200 2507 / 2507 989 / 989 Weight (kg) 76 kg Objective General Appearance: positive No acute distress and Alert Eyes Bilateral: positive Normal inspection and Conjunctivae nml (pale) ENT: positive ENT inspection nml Neck: positive Nml inspection Respiratory: positive No respiratory distress and Breath sounds nml Cardiovascular: positive Regular rate & rhythm Abdomen: positive Other (distended but non tender); negative No distention Back: positive Nml inspection Skin: positive Color nml Extremities: positive Non-tender and No pedal edema Neurologic/Psychiatric: positive Oriented x3 Lab Results 07/16/24 14:58 07/16/24 04:34 Other Labs: Lab Results x24hrs 07/16/24 07/15/24 07/15/24 Range/Units 04:34 21:48 15:39 WBC 18.5 H (4.8-10.8) x10^3/uL RBC 2.10 L (4.70-6.10) 10^6/uL Hgb 6.1 L* 7.7 L 6.9 L* (14.0-18.0) g/dL Hct 19.1 L* (42.0-52.0) % MCV 91.0 (80.0-94.0) fL MCH 29.0 (27.0-31.0) pg MCHC 31.9 L (32.0-36.0) g/dL RDW 14.5 (12.0-15.0) % Plt Count 127 L (130-450) 10^3/uL MPV 11.0 (7.4-11.4) fL Neut # (Auto) 14.3 H (1.5-6.6) 10^3/uL Lymph # (Auto) 2.6 (1.5-3.5) 10^3/uL [place] # (Auto) 1.2 H (0.0-1.0) 10^3/uL Eos # (Auto) 0.0 (0.0-0.7) 10^3/uL Baso # (Auto) 0.1 (0.0-0.1) 10^3/uL Absolute Nucleated RBC 0.07 x10^3/uL Nucleated RBC % 0.4 /100WBC PT 25.7 H 39.9 H (9.9-12.6) secs INR 2.5 H 4.0 H (0.8-1.2) Sodium 139 (135-145) mmol/L Potassium 3.8 (3.5-4.5) mmol/L Chloride 109 (101-111) mmol/L Carbon Dioxide 26 (21-32) mmol/L Anion Gap 4.0 L (6-13) BUN 29 H (6-20) mg/dL Creatinine 1.2 (0.6-1.3) mg/dL Estimated GFR (MDRD) 60 L (>89) Glucose 160 H (74-104) mg/dL Calcium 7.3 L (8.5-10.3) mg/dL Blood Type Antibody Screen Crossmatch IS Only 07/15/24 07/14/24 Range/Units 10:52 20:38 WBC (4.8-10.8) x10^3/uL RBC (4.70-6.10) 10^6/uL Hgb 6.3 L* (14.0-18.0) g/dL Hct (42.0-52.0) % MCV (80.0-94.0) fL MCH (27.0-31.0) pg MCHC (32.0-36.0) g/dL RDW (12.0-15.0) % Plt Count (130-450) 10^3/uL MPV (7.4-11.4) fL Neut # (Auto) (1.5-6.6) 10^3/uL Lymph # (Auto) (1.5-3.5) 10^3/uL [place] # (Auto) (0.0-1.0) 10^3/uL Eos # (Auto) (0.0-0.7) 10^3/uL Baso # (Auto) (0.0-0.1) 10^3/uL Absolute Nucleated RBC x10^3/uL Nucleated RBC % /100WBC PT (9.9-12.6) secs INR (0.8-1.2) Sodium (135-145) mmol/L Potassium (3.5-4.5) mmol/L Chloride (101-111) mmol/L Carbon Dioxide (21-32) mmol/L Anion Gap (6-13) BUN (6-20) mg/dL Creatinine (0.6-1.3) mg/dL Estimated GFR (MDRD) (>89) Glucose (74-104) mg/dL Calcium (8.5-10.3) mg/dL Blood Type O POSITIVE Antibody Screen NEGATIVE Crossmatch IS Only See Detail Assessment/Plan Problem List (1) GI bleed: Impression: 07/16: Colonoscopy today shows blood in the colon with NO active bleeding. The INR was about 1.7 at that time. I have discussed the patient with Dr Tarango and the decision was to continut to watch the patient's H/H. IF he shows signs that he continues to bleed, I will transfer him to a facility with IR for potential embolization. I have given him RBCs today, I have given him FFP and Vit K. His hemoglobin over the course of the day is gone from 6.1-7.7 with 2 units of red blood cells. His INR with treatment as outlined above is now down to 1.4. I think with his INR being reversed it is reasonable to continue to watch him. However I think it is also reasonable to transfer him should he show signs of bleeding 07/15:This AM a large BM with dark blood and clots in the toilets. Patient feels a bit better after that. had an additional BM of similar characteristics several hours later. September [address] Barkley- was admitted at that time. per dc summary EGD/Colonos showed small bleeding gastric ulcers as well as bleeding diverticuli. I have discussed this patient with Dr Tarango, general surgery this AM. I have made the patient NPO x meds. Dr Tarango will see the patient and decide if EGD today/colonoscopy tomorrow would be appropriate. Patient had an EGD today. This was clean there was no evidence of ulceration. Dr. Tarango is planning on colonoscopy for the patient tomorrow he will get a bowel prep and be n.p.o. after midnight. I received a call from Dr. Nowak radiologist at [facility]. The CTA of the abdomen shows a blush at the hepatic flexure indicative of possible active bleeding at the distal ascending colon. From the right colic artery. Dr. Fair is an interventional radiologist. I discussed the possibility of transferring the patient for embolization. Given the patient's current INR is 4.0 we will continue to reverse the INR and observe the patient for further signs and symptoms of bleeding. This was discussed with Dr. Tarango and he and I agreed that we would continue to prep the patient for colonoscopy and pivot towards IR embolization or diagnostic colonoscopy as indicated. (2) Atrial fibrillation with rapid ventricular response: Impression: 07/16: Echocardiogram shows the patient is in sinus rhythm at that time. His ejection fraction is 60 to 65% the right and left ventricle are of normal size and there is no significant valvular disease. He is being loaded with amiodarone. He has been in and out of sinus rhythm. His heart rate is in the low 100s today but I can attribute that partially to his anemia. His blood pressure has been in the low 100s to 110s despite his acute GI blood loss. We will continue with amiodarone and policy change clerk to oral amiodarone for now I am holding metoprolol and I believe that anticoagulation is contraindicated in this patient. 07/15:questionable age of onset. cardioversion in ED failed. Metoprolol held overnight due to parameters. has converted to sinus rhythm on amiodarone. Anticipate eventual transition to po amiodarone and outpatient cardiology followup. he has had echocardiogram done, but not read. (3) ABLA (acute blood loss anemia): Impression: in the setting of GI bleeding and supratherapeutic INR. INR sufficiently reversed. Will observe overnight for further bleeding and transfer as indicated (4) Supratherapeutic INR: Impression: Patient with hx of PE per my chart review. There is also hx of a fib with RVR listed in the chart. It is unclear where he has been getting his coumadin. or who has been monitoring INR. Pharmacy has checked records and cannot find a record of this. It is likely that he is taking this without appropriate monitoring. possible that he has a leftover supply and taking it at home when he is not feeling well. He does not seem to understand the mechanism of action of the warfarin and why using it in this way can be quite harmful. definitely need home health on dischage for monitoring. Would consider not anticoagulating this patient given the fact that he has had GI bleed twice in the past once in 2020 and once now. Discussed further with the patient. He states that he did have an old bottle of Coumadin and had been taking it intermittently. He tells me that he will throw it away. (5) Hypertension: Impression: Currently hypotensive due to his anemia. He is being appropriately treated for this. I am holding his home antihypertensives. I have spent 55 minutes in the care of this patient today. This includes time [id number]-[id number], review and ordering of diagnostic imaging and laboratory studies and consultation with other providers.. Monitoring the patient's signs symptoms, evaluation of medication effectiveness and patient's response to treatment.
[2024-07-16 11:22] LABS: INR 1.7 (0.8-1.2)
[2024-07-16] MEDS ORDERED: PROPOFOL 500 MG/50 ML 500 MG/50 ML VIAL ONE (11:58)
[2024-07-16] MEDS ORDERED: LIDOCAINE-MPF 2% 5 ML VIAL ONE (11:59)
[2024-07-16] MEDS: CALCIUM GLUC 1,000MG/50ML-NACL 1,000 MG/50 ML BAG IV ONE (12:02)
[2024-07-16] MEDS ORDERED: THROMBIN (BOVINE) 5,000 UNIT VIAL TOP ONE (12:37)
[2024-07-16] MEDS ORDERED: EPINEPHrine 1 MG/ML AMP ONE (12:37)
--- NOTE | 2024-07-16 12:37 | ANESTHESIA PROCEDURE NOTE ---
Pre-Anesthesia VS, & Labs Diagnosis Surgical Diagnosis:: GI bleed Procedure Procedure: colonoscopy Vitals Vital Signs: Temp Pulse Resp BP Pulse Ox O2 Flow Rate 36.9 C 106 H 18 103/64 92 15 07/16/24 11:55 07/16/24 12:00 07/16/24 12:00 07/16/24 12:00 07/16/24 12:00 07/14/24 19:49 NPO NPO: >8 hours Lab Results Current Lab Results: Laboratory Tests 07/16/24 11:08: Hgb 6.3 L*, PT 18.0 H, INR 1.7 H 07/16/24 04:34: WBC 18.5 H, RBC 2.10 L, Hgb 6.1 L*, Hct 19.1 L*, MCV 91.0, MCH 29.0, MCHC 31.9 L, RDW 14.5, Plt Count 127 L, MPV 11.0, Neut # (Auto) 14.3 H, Lymph # (Auto) 2.6, [place] # (Auto) 1.2 H, Eos # (Auto) 0.0, Baso # (Auto) 0.1, Absolute Nucleated RBC 0.07, Nucleated RBC % 0.4, PT 25.7 H, INR 2.5 H, Sodium 139, Potassium 3.8, Chloride 109, Carbon Dioxide 26, Anion Gap 4.0 L, BUN 29 H, Creatinine 1.2, Estimated GFR (MDRD) 60 L, Glucose 160 H, Calcium 7.3 L 07/15/24 21:48: Hgb 7.7 L 07/15/24 15:39: Hgb 6.9 L*, PT 39.9 H, INR 4.0 H 07/15/24 10:52: Hgb 6.3 L* 07/15/24 09:09: Troponin I High Sens 5.1 07/15/24 04:40: WBC 17.6 H, RBC 2.74 L, Hgb 8.0 L, Hct 25.7 L, MCV 93.8, MCH 29.2, MCHC 31.1 L, RDW 13.4, Plt Count 163, MPV 10.6, Neut # (Auto) 12.8 H, L ymph # (Auto) 3.8 H, [place] # (Auto) 0.9, Eos # (Auto) 0.0, Baso # (Auto) 0.0, Absolute Nucleated RBC 0.00, Nucleated RBC % 0.0, PT 32.2 H, INR 3.2 H, Sodium 138, Potassium 4.6 H, Chloride 109, Carbon Dioxide 25, Anion Gap 4.0 L, BUN 28 H , Creatinine 1.2, Estimated GFR (MDRD) 60 L, Glucose 123 H, Calcium 8.4 L, Magnesium 2.0, Troponin I High Sens 4.3 07/14/24 20:38: Blood Type O POSITIVE, Antibody Screen NEGATIVE, Crossmatch IS Only See Detail 07/14/24 17:23: WBC 11.6 H, RBC 3.73 L, Hgb 10.8 L, Hct 34.4 L, MCV 92.2, MCH 29.0, MCHC 31.4 L, RDW 13.2, Plt Count 209, MPV 10.2, Neut # (Auto) 9.5 H, Lymph # (Auto) 1.7, [place] # (Auto) 0.3, Eos # (Auto) 0.0, Baso # (Auto) 0.1, Absolute Nucleated RBC 0.00, Nucleated RBC % 0.0, PT 57.5 H, INR 5.9 H*, Sodium 137, Potassium 4.4, Chloride 106, Carbon Dioxide 25, Anion Gap 6.0, BUN 26 H, Creatinine 1.2, Estimated GFR (MDRD) 60 L, Glucose 203 H, Calcium 8.9, Magnesium 2.0, Total Bilirubin 1.1 H, AST 16, ALT 17, Alkaline Phosphatase 57, Troponin I High Sens 3.5, B-Natriuretic Peptide 43, Total Protein 6.2 L, Albumin 3.7, Globulin 2.5, Albumin/Globulin Ratio 1.5, TSH 1.49, Blood Type Recheck O POSITIVE 07/16/24 11:08 07/16/24 04:34 Meds/Allgy Home Medications Ambulatory Orders Medication Instructions Recorded Confirmed losartan 50 mg tablet 50 mg PO DAILY #90 tabs 05/04/24 07/14/24 meloxicam 7.5 mg tablet 7.5 mg PO QDAY PRN Pain #30 tabs 05/04/24 07/14/24 hydrocortisone acetate 25 mg 25 mg ME BID #12 ea 07/13/24 07/14/24 rectal suppository (Anucort-HC) Allergies Allergies Allergy/AdvReac Type Severity Reaction Status Date / Time No Known Drug Allergies Allergy Verified 07/14/24 17:17 [facility] Surgical History Surgical History (Updated 05/04/24 @ 10:27 by Parrish Jackson DNP, EVANS, JENNI) 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 and With family (15 year old daughter) Support Person: Yes Relationship: Physical Activity: Walking Level: Independent Do you feel safe in your home environment?: Yes Suffered physical, verbal, emotional, or financial abuse?: No History of Abuse: No ETOH Use: None Substance Use: denies use Are you sexually active?: No Occupation: [employer] Are you following a diet prescribed by a doctor: No Are you following a special diet: No POLST Patient has POLST: No Anesthesia Exam (Expanded) Exam General: Alert and Oriented x3 Mouth Opening: Greater than 4 Fingerbreadths Neck Mobility: Normal Mallampati classification: II Thyromental Distance: 4-6 cm Respiratory: Lungs clear Cardiovascular: Regular rate Plan Problem List (1) GI bleed: Plan: plan upper endoscopy today/ soon and if unremarkable plan colonoscopy tomorrow after bowel prep. parq held and consent obtained. agree with current care. (2) Atrial fibrillation with rapid ventricular response: (3) ABLA (acute blood loss anemia): (4) Supratherapeutic INR: (5) Hypertension: Plan Anesthesia Type: Total IV Consent for Procedure(s) Verified and Reviewed: Yes Code Status: Attempt Resuscitation ASA Classification ASA classification: 3-Severe systemic disease Is this case an emergency?: Yes
[2024-07-16] MEDS ORDERED: SODIUM CHLORIDE 0.9% 10 ML VIAL IVP ONE (12:38)
[2024-07-16] MEDS ORDERED: ePHEDrine 50 MG/ML VIAL IVP ONE (12:38)
[2024-07-16] MEDS ORDERED: PHENYLEPHRINE HCL 0.5 MG/5 ML AMPULE ONE (12:40)
--- NOTE | 2024-07-16 13:43 | OPERATIVE REPORT ---
Operative Report General Admit Date: 07/15/24 Procedure Data: Operation Date: 07/16/24 12:15 Proposed Procedures p Colonoscopy(Not Applicable) - Luis Tarango MD Actual Procedures p Colonoscopy W/POLYPECTOMY(Not Applicable) - Luis Tarango MD Pre-Op Diagnosis: INTESTINAL BLEEDING Anesthesia Type General Case Staff Anesthesia Provider: Sha Elliott Case Times Procedure Start: 07/16/24 13:02 Time out: 07/16/24 13:01 Pre-Op Diagnosis: lower go bleed Post Op Diagnosis: lower gi bleed, multiple diverticula hepatic flexure area. no bleeding Procedure Note Pathology: small polyp sigmoid Indications: lower gi bleed Findings: blood throughout the colon. no bleeding at time of endoscopy. diffuse diverticulosis with multiple large diverticula hepatic flexure. no blood in the terminal ileum Complications: none
--- NOTE | 2024-07-16 14:09 | ANESTHESIA POST OP EVALUATION ---
Anesthesia Post Eval Post Anesthesia Eval Vitals: Last Vital Signs Temp 36.8 C 07/16/24 13:51 Pulse 108 H 07/16/24 13:51 Resp 21 07/16/24 13:51 BP 94/62 07/16/24 13:51 Pulse Ox 96 07/16/24 13:51 O2 Flow Rate 15 07/14/24 19:49 CV Function Including HR & BP: Stable Pain Control: Satisfactory Nausea & Vomiting: Negative Mental Status: Baseline Respiratory Status: Airway Patent Hydration Status: Satisfactory Anesthesia Complications: None
[2024-07-16 16:00] LABS: INR 1.4 (0.8-1.2); PT - PROTHROMBIN TIME 15.3 secs (9.9-12.6)
--- NOTE | 2024-07-16 17:15 | ANESTHESIA POST OP EVALUATION ---
Anesthesia Post Eval Post Anesthesia Eval Vitals: Last Vital Signs Temp 37.0 C 07/16/24 17:00 Pulse 84 07/16/24 17:00 Resp 20 07/16/24 17:00 BP 106/69 07/16/24 17:00 Pulse Ox 96 07/16/24 17:00 O2 Flow Rate 15 07/14/24 19:49 CV Function Including HR & BP: Stable Pain Control: Satisfactory Nausea & Vomiting: Negative Mental Status: Baseline Respiratory Status: Airway Patent Hydration Status: Satisfactory Anesthesia Complications: None
[2024-07-17 05:40] LABS: BASOPHILS # (AUTO) 0.1 10^3/uL (0.0-0.1); BASOPHILS % (AUTO) 0.4 %; EOSINOPHILS # (AUTO) 0.1 10^3/uL (0.0-0.7); EOSINOPHILS % (AUTO) 0.9 %; HCT - HEMATOCRIT 22.4 % (42.0-52.0); LYMPHOCYTES # (AUTO) 2.5 10^3/uL (1.5-3.5); LYMPHOCYTES % (AUTO) 21.6 %; MEAN CORPUSCULAR HEMOGLOBIN 29.8 pg (27.0-31.0); MEAN CORPUSCULAR HGB CONC 31.3 g/dL (32.0-36.0); MEAN CORPUSCULAR VOLUME 95.3 fL (80.0-94.0); MEAN PLATELET VOLUME 11.4 fL (7.4-11.4); MONOCYTES % (AUTO) 8.8 %; NEUTROPHILS # (AUTO) 7.8 10^3/uL (1.5-6.6); NEUTROPHILS % (AUTO) 67.2 %; NUCLEATED RED BLOOD CELLS AUTO 1.7 /100WBC; PLT - PLATELET COUNT 88 10^3/uL (130-450); RED BLOOD COUNT 2.35 10^6/uL (4.70-6.10); RED CELL DISTRIBUTION WIDTH 14.9 % (12.0-15.0); WHITE BLOOD COUNT 11.6 x10^3/uL (4.8-10.8)
[2024-07-17 05:53] LABS: VBG PH 7.541 (7.31-7.41)
[2024-07-17 05:54] LABS: CALCIUM, IONIZED 1.11 mmol/L (1.09-1.30)
[2024-07-17 06:02] LABS: PHOSPHORUS 1.9 mg/dL (2.5-5.0)
[2024-07-17 06:04] LABS: CALCIUM 7.5 mg/dL (8.5-10.3); CREATININE 0.9 mg/dL (0.6-1.3); POTASSIUM 3.4 mmol/L (3.5-4.5)
[2024-07-17] MEDS ORDERED: SODIUM CHLORIDE 0.9% 250 ML IV ONE (09:50)
[2024-07-17] MEDS: SODIUM CHLORIDE FLUSH 0.9% 10 ML SYRINGE IVP PRN (09:54)
[2024-07-17] MEDS: POTASSIUM PHOSPHATE 15 MMOL in SODIUM CHLORIDE 0.9% 250 ML IV ONE (10:20)
[2024-07-17] MEDS: NEUTRA-PHOS 250 MG TABLET PO SCH (12:17)
[2024-07-17] MEDS: AMIODARONE 200 MG TABLET PO SCH (12:17)
--- NOTE | 2024-07-17 13:14 | PROVIDER PROGRESS NOTE ---
Subjective General Admit Date: 07/15/24 Other Other Information/Narrative: PPD2 EGD, PPD1 colonoscopy. BMs becoming more brown/normal, melena clearing. HD normal since colonoscopy yesterday, tolerating clears, benign abdomen, hungry for solid food. Review of Systems Status of ROS: 10 or more systems reviewed and unremarkable except as noted in history and below Exam Constitutional no apparent distress Respiratory normal respiratory effort Cardiovascular normal heart rate noted Gastrointestinal abdomen normal to inspection Impression/Plan Problem List (1) GI bleed: Plan: 69M admitted with GIB, symptomatic from acute blood loss anemia, and supratherapeutic on coumadin without clear indication/monitoring of medication. EGD was normal, CTA showed active bleed at hepatic flexure (while INR supratherapeutic), and colonoscopy (INR normalized) showed no acute bleeding but large diverticula at hepatic flexure. Patient has history of diverticular bleed in the past. Overall presume he had a recurrent diverticular bleed from hepatic flexure that was self-limited when INR corrected. He has now stablized. - agree with downgrade to floor - agree with advancing diet. If this recurs, likely recommend interventional radiology for embolization; alternative for recurrent diverticular bleed would be right colectomy, however patient is poor surgical candidate. Management of anticoagulation going forward as per hospitalist service. Simi Madrid DO, FACS General Surgeon, Chloe (2) Atrial fibrillation with rapid ventricular response: (3) ABLA (acute blood loss anemia): (4) Supratherapeutic INR: (5) Hypertension:
--- NOTE | 2024-07-17 16:04 | PROVIDER PROGRESS NOTE ---
Subjective Prog Note Date Prog Note Date: 07/17/24 Subjective Subjective: He has been resting all day. Feels much better. somewhat unsteady on his feet, but RNs feel sure they can get him up and moving. has had several small bowel movements w small amounts of old blood. Current Medications Current Medications Current Medications: Current Medications Generic Name Dose Route Start Last Admin Trade Name Freq PRN Reason Stop Dose Admin Acetaminophen 650 mg 07/14/24 22:16 Acetaminophen 325 Mg Tablet PO Q4HR PRN Pain 1 to 4, or Fever Amiodarone HCl 200 mg 07/17/24 11:51 07/17/24 12:17 Amiodarone 200 Mg Tablet PO 200 mg DAILY DELTA Administration Ondansetron HCl 4 mg 07/14/24 22:16 07/15/24 08:02 Ondansetron Odt 4 Mg Tablet TL 4 mg Q6HR PRN Administration Nausea / Vomiting Pantoprazole Sodium 40 mg 07/15/24 11:00 07/17/24 09:53 Pantoprazole 40 Mg Vial IVP 40 mg BID DELTA Administration Sodium Chloride 10 ml 07/14/24 22:16 07/17/24 09:54 Sodium Chloride Flush 0.9% 10 Ml Syringe IVP 10 ml PRN PRN Administration NEEDED PER PROVIDER ORDERS Sodium Chloride 10 ml 07/15/24 01:00 07/17/24 09:54 Sodium Chloride Flush 0.9% 10 Ml Syringe IVP 10 ml 0100,0900,1700 DELTA Administration Sodium Phosphate 250 mg 07/17/24 12:00 07/17/24 12:17 Neutra-Phos 250 Mg Tablet PO 250 mg TIDWM DELTA Administration Objective Vital Signs/Intake & Output Reviewed Vital Signs: Yes Vital Signs: Vital Signs x48h Temp Pulse Resp BP BP Pulse Ox 07/17/24 14:00 96 23 108/63 98 07/17/24 11:11 36.8 C 82 20 111/73 99 07/17/24 11:00 62 17 111/73 98 07/17/24 10:00 81 17 94/61 96 07/17/24 09:00 91 22 93/62 98 07/17/24 08:10 37.1 C 86 17 105/82 97 07/17/24 08:00 37.1 C 87 24 99/75 97 Intake & Output: Intake & Output 07/14/24 07/15/24 07/16/24 07/17/24 23:59 23:59 23:59 23:59 Intake Total 1200 / 1200 2632 / 2632 2431 / 2431 875 / 875 Output Total 125 / 125 600 / 600 550 / 550 Balance 1200 / 1200 2507 / 2507 1831 / 1831 325 / 325 Weight (kg) 76 kg Objective General Appearance: positive No acute distress and Alert Eyes Bilateral: positive Normal inspection and Conjunctivae nml (pale) ENT: positive ENT inspection nml Neck: positive Nml inspection Respiratory: positive No respiratory distress and Breath sounds nml Cardiovascular: positive Regular rate & rhythm Abdomen: positive No distention and Other (not distended or tender. ) Back: positive Nml inspection Skin: positive Color nml Extremities: positive Non-tender and No pedal edema Neurologic/Psychiatric: positive Oriented x3 Lab Results 07/17/24 04:25 07/17/24 04:25 Other Labs: Lab Results x24hrs 07/17/24 07/16/24 07/14/24 Range/Units 04:25 14:58 20:38 WBC 11.6 H (4.8-10.8) x10^3/uL RBC 2.35 L (4.70-6.10) 10^6/uL Hgb 7.0 L* (14.0-18.0) g/dL Hct 22.4 L (42.0-52.0) % MCV 95.3 H (80.0-94.0) fL MCH 29.8 (27.0-31.0) pg MCHC 31.3 L (32.0-36.0) g/dL RDW 14.9 (12.0-15.0) % Plt Count 88 L (130-450) 10^3/uL MPV 11.4 (7.4-11.4) fL Neut # (Auto) 7.8 H (1.5-6.6) 10^3/uL Lymph # (Auto) 2.5 (1.5-3.5) 10^3/uL Tripp # (Auto) 1.0 (0.0-1.0) 10^3/uL Eos # (Auto) 0.1 (0.0-0.7) 10^3/uL Baso # (Auto) 0.1 (0.0-0.1) 10^3/uL Absolute Nucleated RBC 0.20 x10^3/uL Nucleated RBC % 1.7 /100WBC PT 15.3 H (9.9-12.6) secs INR 1.4 H (0.8-1.2) VBG pH 7.541 H (7.31-7.41) Ionized Calcium 1.11 (1.09-1.30) mmol/L Sodium 139 (135-145) mmol/L Potassium 3.4 L (3.5-4.5) mmol/L Chloride 107 (101-111) mmol/L Carbon Dioxide 26 (21-32) mmol/L Anion Gap 6.0 (6-13) BUN 17 (6-20) mg/dL Creatinine 0.9 (0.6-1.3) mg/dL Estimated GFR (MDRD) 83 L (>89) Glucose 119 H (74-104) mg/dL Calcium 7.5 L (8.5-10.3) mg/dL Phosphorus 1.9 L (2.5-5.0) mg/dL Magnesium 2.0 (1.7-2.3) mg/dL Blood Type O POSITIVE Antibody Screen NEGATIVE Crossmatch IS Only See Detail Assessment/Plan Problem List (1) GI bleed: Impression: 07/17: Got a unit of PRBCs this AM. Feels much better, does not have distension in his abdomen or the feeling he has while he is bleeding. Feels tired, but improved. He has tolerated a regular diet for lunch . Discussed this AM with general surgery. Were this to recur, they would likely recommend a partial colectomy of the ascending/transverse. 07/16: Colonoscopy today shows blood in the colon with NO active bleeding. The INR was about 1.7 at that time. I have discussed the patient with Dr Tarango and the decision was to continut to watch the patient's H/H. IF he shows signs that he continues to bleed, I will transfer him to a facility with IR for potential embolization. I have given him RBCs today, I have given him FFP and Vit K. His hemoglobin over the course of the day is gone from 6.1-7.7 with 2 units of red blood cells. His INR with treatment as outlined above is now down to 1.4. I think with his INR being reversed it is reasonable to continue to watch him. However I think it is also reasonable to transfer him should he show signs of bleeding 07/15:This AM a large BM with dark blood and clots in the toilets. Patient feels a bit better after that. had an additional BM of similar characteristics several hours later. September [address] Barkley- was admitted at that time. per dc summary EGD/Colonos showed small bleeding gastric ulcers as well as bleeding diverticuli. I have discussed this patient with Dr Tarango, general surgery this AM. I have made the patient NPO x meds. Dr Tarango will see the patient and decide if EGD today/colonoscopy tomorrow would be appropriate. Patient had an EGD today. This was clean there was no evidence of ulceration. Dr. Tarango is planning on colonoscopy for the patient tomorrow he will get a bowel prep and be n.p.o. after midnight. I received a call from Dr. Nowak radiologist at [facility]. The CTA of the abdomen shows a blush at the hepatic flexure indicative of possible active bleeding at the distal ascending colon. From the right colic artery. Dr. Fair is an interventional radiologist. I discussed the possibility of transferring the patient for embolization. Given the patient's current INR is 4.0 we will continue to reverse the INR and observe the patient for further signs and symptoms of bleeding. This was discussed with Dr. Tarango and he and I agreed that we would continue to prep the patient for colonoscopy and pivot towards IR embolization or diagnostic colonoscopy as indicated. (2) Atrial fibrillation with rapid ventricular response: Impression: resolved. SR on the monitor now. I am transitioning him to PO amiodarone. 200mg daily 07/16: Echocardiogram shows the patient is in sinus rhythm at that time. His ejection fraction is 60 to 65% the right and left ventricle are of normal size and there is no significant valvular disease. He is being loaded with amiodarone. He has been in and out of sinus rhythm. His heart rate is in the low 100s today but I can attribute that partially to his anemia. His blood pressure has been in the low 100s to 110s despite his acute GI blood loss. We will continue with amiodarone and binder coverstitch to oral amiodarone for now I am holding metoprolol and I believe that anticoagulation is contraindicated in this patient. 1/23:questionable age of onset. cardioversion in ED failed. Metoprolol held overnight due to parameters. has converted to sinus rhythm on amiodarone. Anticipate eventual transition to po amiodarone and outpatient cardiology followup. he has had echocardiogram done, but not read. (3) ABLA (acute blood loss anemia): Impression: in the setting of GI bleeding and supratherapeutic INR. INR sufficiently reversed. Would recommend against coumadin or any anticoagulation in this patient. there are risks associated with this. he has a history of DVT and A fib. But, he has had 2 GI bleeds (this episode plus in 2020), that have required hospitalizations and blood transfusions. I will place him on ASA 81 mg daily, but I think that more than that is too risky. (4) Supratherapeutic INR: Impression: Patient with hx of PE per my chart review. There is also hx of a fib with RVR listed in the chart. It is unclear where he has been getting his coumadin. or who has been monitoring INR. Pharmacy has checked records and cannot find a record of this. It is likely that he is taking this without appropriate monitoring. possible that he has a leftover supply and taking it at home when he is not feeling well. He does not seem to understand the mechanism of action of the warfarin and why using it in this way can be quite harmful. definitely need home health on dischage for monitoring. Would consider not anticoagulating this patient given the fact that he has had GI bleed twice in the past once in 2020 and once now. Discussed further with the patient. He states that he did have an old bottle of Coumadin and had been taking it intermittently. He tells me that he will throw it away. (5) Hypertension: Impression: Currently hypotensive due to his anemia. He is being appropriately treated for this. I am holding his home antihypertensives. I have spent 55 minutes in the care of this patient today. This includes time [id number], review and ordering of diagnostic imaging and laboratory studies and consultation with other providers.. Monitoring the patient's signs symptoms, evaluation of medication effectiveness and patient's response to treatment. Transferred from ICU to floor status today.
[2024-07-18 05:27] LABS: BASOPHILS % (AUTO) 0.3 %; EOSINOPHILS # (AUTO) 0.2 10^3/uL (0.0-0.7); EOSINOPHILS % (AUTO) 1.9 %; HCT - HEMATOCRIT 25.6 % (42.0-52.0); HGB - HEMOGLOBIN 8.3 g/dL (14.0-18.0); LYMPHOCYTES # (AUTO) 2.9 10^3/uL (1.5-3.5); LYMPHOCYTES % (AUTO) 24.4 %; MEAN CORPUSCULAR HEMOGLOBIN 30.1 pg (27.0-31.0); MEAN CORPUSCULAR HGB CONC 32.4 g/dL (32.0-36.0); MEAN CORPUSCULAR VOLUME 92.8 fL (80.0-94.0); MEAN PLATELET VOLUME 10.4 fL (7.4-11.4); MONOCYTES % (AUTO) 8.3 %; NEUTROPHILS # (AUTO) 7.5 10^3/uL (1.5-6.6); NEUTROPHILS % (AUTO) 63.4 %; NRBC ABSOLUTE COUNT (AUTO) 0.14 x10^3/uL; NUCLEATED RED BLOOD CELLS AUTO 1.2 /100WBC; PLT - PLATELET COUNT 123 10^3/uL (130-450); RED BLOOD COUNT 2.76 10^6/uL (4.70-6.10); RED CELL DISTRIBUTION WIDTH 14.9 % (12.0-15.0); WHITE BLOOD COUNT 11.8 x10^3/uL (4.8-10.8)
[2024-07-18 05:38] LABS: CALCIUM 7.7 mg/dL (8.5-10.3); POTASSIUM 3.4 mmol/L (3.5-4.5)
--- NOTE | 2024-07-18 11:07 | Discharge Summary ---
"Discharge Summary Admit Date: 07/14/24 Discharge Date: 07/18/24 Discharging Provider: Jen Cates PA-C Primary Care Provider: JENNI Muse Code Status: Attempt Resuscitation DIAGNOSES Discharge Diagnoses with Status of Each Condition: GI bleed, treated Atrial fibrillation with RVR, resolved Acute blood loss anemia, treated Supratherapeutic INR, reversed. Hypertension, chronic HPI History of Present Illness: 69-year-old male who presents to the emergency department with complaints of being weak and dizzy. He was seen in our emergency department yesterday diagnosed with hemorrhoids after having several episodes of rectal bleeding prior to presentation. At that time his INR was noted to be 5.9. He was instructed not to continue taking Coumadin. He could not tell anyone why he is on Coumadin. He does not think he has atrial fibrillation. He states that he takes the Coumadin whenever he thinks he needs it. Of note he is also on meloxicam for neck pain. In any event called the ambulance this evening for dizziness and lightheaded and was found to be in A-fib with RVR. Was given diltiazem IV to treat a heart rate which was in the 140s which was reduced to 80 with diltiazem. Since he has been in the emergency department he has been cardioverted as this was thought to potentially be new onset atrial fibrillation. When he was treated with propofol prior to cardioversion he had onset of hypotension and bradycardia. After cardioversion he briefly converted to sinus rhythm but then went back into atrial fibrillation. He has been given 150 mg of amiodarone in the emergency department he will be given additional 150 mg of amiodarone and started on amiodarone three-step infusion. When I ask him if he sees a heart doctor he says he does not think so however he did tell the emergency department that he has previously seen a station repairer at [facility]. When asked about CODE STATUS he states that he does want everything done. When asked about surrogate decision maker he does not seem to be able to understand why he would not be competent to make his medical decisions at all times. We will have further code discussions tomorrow CONSULTS | PROCEDURES Procedures: Chest x-ray: Low lung volumes no acute abnormalities Abdomen pelvis CTA: Focus of active GI bleeding involving the distal ascending colon near the hepatic flexure with adjacent diverticulum likely diverticular bleed possibly from a branch of the right colic artery. Cholelithiasis. 5 mm nonobstructing left renal stone Upper endoscopy: Normal Colonoscopy: Blood throughout the colon no acute bleeding due to diffuse diverticulosis with multiple large diverticuli at the hepatic flexure ALLERGIES Allergies Allergy/AdvReac Type Severity Reaction Status Date / Time No Known Drug Allergies Allergy Verified 07/14/24 17:17 MEDICATIONS Ambulatory Orders Medication Instructions Recorded Confirmed acetaminophen 325 mg tablet 650 mg (2 x 325 mg) PO Q4HR PRN 07/18/24 Pain 1 to 4, or Fever #30 tabs amiodarone 200 mg tablet 200 mg PO DAILY #30 tabs 07/18/24 aspirin 81 mg tablet,delayed 81 mg PO DAILY #90 tabs 07/18/24 release pantoprazole 40 mg tablet,delayed 40 mg PO DAILY #30 tabs 07/18/24 release (Protonix) sodium di- and 1 tab PO TIDWM #90 tabs 07/18/24 monophosphate-potassium phos monobasic 250 mg tablet (Phospha Neutral) PHYSICAL EXAM AT DISCHARGE Physical Exam Other/Comments: General Appearance: positive No acute distress and Alert Eyes Bilateral: positive Normal inspection and Conjunctivae nml (pale) ENT: positive ENT inspection nml Neck: positive Nml inspection Respiratory: positive No respiratory distress and Breath sounds nml Cardiovascular: positive Regular rate & rhythm Abdomen: positive No distention and Other (not distended or tender. ) Back: positive Nml inspection Skin: positive Color nml Extremities: positive Non-tender and No pedal edema Neurologic/Psychiatric: positive Oriented x3 LABS 07/18/24 04:15 07/18/24 04:15 Discharge Plan Discharge Patient Disposition: Home, Self Care Condition: Serious Prescriptions: New acetaminophen 325 mg Tablet 650 mg PO Q4HR PRN (Reason: Pain 1 to 4, or Fever) Qty: 30 0RF amiodarone 200 mg Tablet 200 mg PO DAILY Qty: 30 0RF Phospha 250 Neutral 250 mg Tablet 1 tab PO TIDWM Qty: 90 0RF pantoprazole [Protonix] 40 mg tablet,delayed release (DR/EC) 40 mg PO DAILY Qty: 30 2RF aspirin 81 mg tablet,delayed release (DR/EC) 81 mg PO DAILY Qty: 90 3RF Discontinued hydrocortisone acetate [Anucort-HC] 25 mg suppository 25 mg [place] BID Qty: 12 0RF meloxicam 7.5 mg tablet 7.5 mg PO QDAY PRN (Reason: Pain ) Qty: 30 2RF losartan 50 mg tablet 50 mg PO DAILY Qty: 90 0RF Activity Restrictions: Activity as Tolerated Diet: Cardiac Health Concerns: You are a 69-year-old male who came into the hospital with what was initially thought to be bleeding from hemorrhoids in your rectum. You were admitted to the hospital because you continue to lose blood and needed a blood transfusion. Further testing showed that the bleeding was coming from your colon. You have a history of pulmonary embolism and atrial fibrillation. Unfortunately both of these diagnoses suggest that you should be taking anticoagulant medication. Also unfortunately anticoagulant medication can cause bleeding. At this point the risk of you bleeding to is greater than the risk from complications from anticoagulant medication. To help mitigate the risk of bleeding from your GI tract and the risk from clotting, we will start you on aspirin 81 mg a day. You should take this with food. You also have a history of high blood pressure. Your blood pressure has been low here in the hospital and we have held your antihypertensive medications. The name of your blood pressure medication is losartan. For now I want you to stop this medication. I want you to follow-up with your primary care provider in about a week. At this time ARGELIA Sanchez can help you decide if you should continue your blood pressure medication. You have been taking meloxicam for arthritis pain in your neck. I want you to stop this medication as it has some implications for bleeding in your GI tract. I have added an additional medication called Protonix which will help with the acid in your stomach. I want you to take this every morning about 30 minutes before you eat. With regards to your heart, while you were here in the hospital you had some problems with your atrial fibrillation. We have started you on a medication called amiodarone and you have done well with this. I am sending you home on amiodarone pills. You need to take 1 of these daily. Also with regards to your heart it is very important that you see a station repairer. ARGELIA Sanchez should refer you to see a station repairer in the near future for your atrial fibrillation. Your potassium has been slightly low since you have been here in the hospital. I have added a medication to help keep your potassium up, but you need to have a potassium level checked in about a week. This is the reason that primary care follow-up is very important for you. With regards to Coumadin also known as warfarin; this medication is not good for you and you should not take it. This medication caused her INR to be very high which caused you to bleed which caused you to need blood transfusions and be in the ICU. This medication has its uses in patients with problems with clotting, however in your case I think the risk of bleeding from your GI tract is too high. This is not the first time you have blood from your GI tract. You were hospitalized for the same thing in 2020. If this happens again, it is possible that you will have to have a surgery to remove part of your colon and this can be painful and disabling. I would rather see you not have problems with GI bleeding. You are still anemic from your blood loss. When you see your primary care doctor I would recommend that you have test done to check your iron levels. I also expect that you will have some dark stools as you passed the rest of the blood that is in your GI tract. Make sure to get plenty of rest and eat healthy cardiac diet with lots of fruits and vegetables as your body recovers from this illness. You need to stay home from work this week and I have given you a note to do this. Care Plan Goals: Recheck BMP and CBC in a week. Should also have iron panel checked Assessment: Supratherapeutic INR resulting in GI bleed. GI bleeding reversed after appropriate reversal of INR Print Language: Latvian Patient Instructions: Surgery Anesthesia After Stand Alone Forms: PCP List"
[2024-07-18 12:06] VITALS: BP 136/80; TEMP 98.4; O2SAT 99
== END 2024-07-18 12:20 | disposition home or self-care (01) | DRG 308 ==
LOC: ICU 17:07 → ED 17:07 → ICU 22:09
PROVIDERS: ADMIT Physician Assistant Medical; ATTEND Physician Assistant Medical
DX: K63.5 Polyp of colon; I48.91 Unspecified atrial fibrillation; I10 Essential (primary) hypertension; K57.31 Diverticulosis of large intestine without perforation or abscess with bleeding; M47.812 Spondylosis without myelopathy or radiculopathy, cervical region; K64.9 Unspecified hemorrhoids; D68.9 Coagulation defect, unspecified; D62 Acute posthemorrhagic anemia